=== PATIENT | female | born 1935 | race Caucasian/White ===

== ENCOUNTER 2023-08-25 18:34 | Emergency (ER) | payer MEDICARE, SELFPAY ==
[2023-08-25 18:40] VITALS: BP 147/89; PULSE 96; RESP 20; TEMP 36.6; O2SAT 97; BMI 25.4
--- NOTE | 2023-08-25 18:40 | ED_ITS ---
History of Present Illness General Chief Complaint: Epistaxis Stated Complaint: Epistaxis Time Seen by Provider: 08/25/23 23:24 Source: patient and family Mode of arrival: ambulatory Limitations: no limitations History of Present Illness HPI Narrative: 87 yo female only on baby aspirin and hx of HTN no thinner sneezed tonight bleeding out of R nares that resolved in waiting room using our tongs. Has no dizziness, no pain. Eager to go home. Family member is PA. Location: Yes right nares Onset/current episode: Yes hour(s) (4pm) Duration: Yes now resolved Pertinent past history: Yes hypertension Treatment prior to arrival: Yes nose pinching Related Data Allergies Allergy/AdvReac Type Severity Reaction Status Date / Time No Known Allergies Allergy Verified 08/25/23 18:44 Review of Systems Review of Systems: Constitutional : No Fever, No Chills ENT/Mouth : No Ear Pain, No Nasal Congestion, positive nose bleed Eyes: No Eye Pain, No Swelling, No Redness Cardiovascular : No Chest Pain, No SOB Respiratory : No Cough, No Sputum Gastrointestinal : No Nausea, No Vomiting, No Diarrhea Genitourinary : No Dysuria, No Hematuria Musculoskeletal : No joint pain, No Myalgias Skin : No Skin Lesions, No rash Neuro : No Weakness, No Numbness, No headache Psych : No Anxiety/Panic, No Depression Heme/Lymph: no bruising,No Lymphadenopathy Endocrine : No Polyuria, No Polydipsia PMFSH Past Medical History Medical History HTN (hypertension) Social History Social History (Updated 08/25/23 @ 23:33 by Yoly Cuellar DO) Patient Tobacco Use Status: Never used Tobacco Physical Exam Vital Signs: Vital Signs: Last Vital Signs Temp 97.6 F 08/25/23 22:26 Pulse 74 08/25/23 22:26 Resp 14 08/25/23 22:26 BP 145/75 H 08/25/23 22:26 Pulse Ox 96 08/25/23 22:26 O2 Del Method Room Air 08/25/23 22:26 BMI result Body Mass Index 25.4 Appearance: Alert. Oriented X3. No acute distress. Eyes: Pupils equal, round and reactive to light. ENT: Pharynx normal. no blood noted. no bleeding in either nare I cannot see source family notes no bleeding since they kept tongs on Neck: Normal inspection. Neck supple. CVS: Normal heart rate and rhythm. Pulses normal. Respiratory: No respiratory distress. . Abdomen: Soft and nontender. Skin: Skin warm and dry. Normal skin color. Extremities: No lower extremity edema. Neuro: Oriented X 3. No motor deficit. No sensory deficit. Course Course Course Narrative: This is a Rapid Medical Examination (RME) performed by Perla Alexis PA-C in triage. Full HPI, ROS, assessment and treatment plan per primary provider in the Main ED. 87-year-old female presents the ER for evaluation with nosebleed Plan: Medical Decision Making Medical Decision Making MDM Narrative: 87 yo female not on thinners here with c/o R nares bloody nose that has resolved with direct pressure will apply afrin but I see no source to cauterize at this time no dizziness or signs of anemia clinically they want to be discharged will DC home with precautions. Differential Diagnosis Differential Diagnoses: The differential diagnosis associated with the presentation includes blood nose has no other bruising so no concern for thrombocytopenia Admission/Observation Consideration of admission/observation: Escalation of care including admission/observation considered resolved bloody nose stable for DC Independent Historian Clinical information obtained from an independent historian. History obtained from or confirmed by: Other (family) Prescription Management I considered prescription management with: Other Discharge Plan Discharge Clinical Impression: Epistaxis Patient Disposition: Home, Self-Care Instructions: Nosebleed (ED) Additional Instructions: return for any worsening bleeding or signs of easy bruising. if you bleed again use the blue tongs and hold pressure. can use afrin for 3 days but no more. unable to visualize the bleed to cauterize. Print Language: Jordanian
--- NOTE | 2023-08-25 22:02 | PC.NURSE ---
Patient has had nose clip on since 1829, removed nose clip, no bleeding noted, gave patient call linares to ring if nose began bleeding again.
[2023-08-25 22:26] VITALS: BP 145/75; PULSE 74; RESP 14; TEMP 36.4; O2SAT 96
[2023-08-25] MEDS: Oxymetazoline HCl 0.05 % Nasal 15 ML SPRAY 2 SPRAY NOSTRIL-B (23:40)
[2023-08-25 23:45] VITALS: BP 145/75; PULSE 74; RESP 14; TEMP 36.4; O2SAT 96
== END 2023-08-25 23:45 | disposition home or self-care (01) ==
PROVIDERS: Emergency Provider Emergency Medicine
DX: R04.0 Epistaxis (principal)
CPT/HCPCS: 99283; 99284

== ENCOUNTER 2024-01-27 10:07 | Outpatient (AMB) | payer MEDICARE, SELFPAY ==
--- NOTE | 2024-01-27 10:13 | AM.OFFWIN_ITS ---
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 Intake Note: Patient here for bloody nose that woke her up this morning. Patient Tobacco Use Status: Never used Tobacco Allergies No Known Allergies Allergy (Verified 01/27/24 10:14) Do you need a note to return to daycare/school/sports/work: No HPI HPI Comments History of Present Illness Details 88 y/o female patient who presents to [facility] with c/o nose bleeds since this morning. Reports had one episode of bleeding back in August 2023 and was evaluated at [facility] and was given Padded ResOne Nasal clip which helped to stop the bleeding. She is currently using it, bleeding as subsided. Denies dizziness or headaches. She was also given Afrin which helped to control the bleeding. [facility] Medical History HTN (hypertension) Social History (Updated 08/25/23 @ 23:33 by Yoly Cuellar DO) Patient Tobacco Use Status: Never used Tobacco Review of Systems Const All systems reviewed & are unremarkable except as noted in HPI and below Physical Exam Vital Signs: Last Vital Signs Pulse 60 01/27/24 10:14 BP 130/66 01/27/24 10:14 Pulse Ox 95 01/27/24 10:14 Oxygen Delivery Method Room Air 01/27/24 10:14 BMI result Body Mass Index 28.7 Const General: cooperative and no acute distress Nutritional Appearance: overweight Orientation/consciousness: patient oriented x3 HEENT Head: Yes normocephalic Ears: external ears normal General nose exam: Abnormal mucous membranes and turbinates present erythematous and other (Right nostril currently bleeding.) and Other nasal findings present (Nasal clip ResOne present) Face and sinus: Yes sinuses nontender Mouth: moist mucous membranes Throat: Yes uvula midline Neuro General: patient oriented x3, gait normal and moves all extremities Assessment & Plan Assessment & Plan (1) Epistaxis, recurrent: Code(s): R04.0 - Epistaxis Plan: Advised to f/u with PCP for ENT referral Continue to apply Nasal clip on/off until bleeding stops. Ordered Afrin for 3 days only. Apply Ice and tilt head for 20 minutes. Medications: New oxymetazoline 0.05% (Afrin (oxymetazoline)) 2 sprays intranasal Q12H 3 days PRN 15 mL 1RF nasal congestion R04.0 - Epistaxis Coding Level of Care Code Est Pt Level 3 (06824) Diagnoses Epistaxis, recurrent R04.0 Time Spent (min) 15
[2024-01-27 10:14] VITALS: BP 130/66; PULSE 60; O2SAT 95; BMI 28.7
== END 2024-01-27 10:39 | disposition home or self-care (01) ==
PROVIDERS: Visit Provider Nurse Practitioner Family
DX: R04.0 Epistaxis (principal)

== ENCOUNTER → 2024-01-27 10:07 | Outpatient (BNVA) | payer MEDICARE, SELFPAY | PROVIDERS: Visit Provider Nurse Practitioner Family | DX: R04.0 Epistaxis (principal) | CPT/HCPCS: 99212 ==

== ENCOUNTER 2024-05-25 06:57 | Emergency (ER) | payer MEDICARE, SELFPAY ==
--- NOTE | ~2024-05-25 | XR_ITS ---
EXAMINATION: XR CHEST 1 VIEW HISTORY: dizzy COMPARISON: There are no prior studies for comparison. FINDINGS: A single AP portable view of the chest performed at 12:43 PM is submitted. The lungs are expanded and clear. There is no pleural effusion, pneumothorax, or pulmonary vascular congestion. The heart is enlarged. There is degenerative disc disease of the spine. XR/XR chest 1V IMPRESSION: Cardiomegaly. The lungs are clear. Electronically signed by: Mason Hathaway MD 05/25/2024 01:09 PM [facility]
--- NOTE | ~2024-05-25 | CT_ITS ---
EXAMINATION: CT ANGIOGRAM NECK CLINICAL INFORMATION: Dizziness. COMPARISON: None available. TECHNIQUE: CT brain: Contiguous axial images through the brain from the skull base to vertex using 5 mm collimation without the IV contrast administration. Soft tissue and bone algorithm. Sagittal and coronal reformatted images acquired. CT angiogram of head and neck: Contiguous axial images from the aortic arch to the skull vertex using 0.6 mm collimation following the IV contrast. Total of 70 cc Omnipaque 350 strength without immediate complications. Sagittal and coronal reformatted images acquired. In maximum intensity projections in the coronal and sagittal plane. Soft tissue algorithm. The degree of stenosis determined by NASCET criteria. This CT examination was performed using dose optimization techniques as appropriate, variously including the following: *Automated exposure control *Adjustment of mA and/or kV according to patient size (this includes techniques or standardized protocols for targeted exams where dose is matched to indication/reason for exam; i.e. extremities or head) *Use of iterative reconstruction technique Total DLP: 2331 mGy centimeter. FINDINGS: CT brain: No acute intracranial hemorrhage, mass effect, midline shift, hydrocephalus or herniation. Garcia-white matter differentiation is normal. Bilateral multifocal patchy deep periventricular white matter hypodensities involving centrum semiovale and rodrigues radiata. Prominence of the extra-axial CSF spaces along the intraconal convexities measuring less than 5 mm suggesting volume loss. Images acquired following the IV contrast administration demonstrated no abnormal enhancement within the intra-axial or the extra-axial compartment. Calcified plaques in the cavernous and supraclinoid segments both ICAs. Old lacunar infarct versus Virchow-Jeremy space inferior to right basal ganglia. The bony calvarium is intact. Tympanic cavities and mastoid cells are aerated. Poor pneumatization of the frontal sinuses. No air-fluid levels in the paranasal sinuses. High riding right internal jugular bulb. Degenerative changes in the left temporal mandibular joint. CT angiogram neck: Calcified plaques in the thoracic aortic arch and the origin of its main branches. Normal diameter of the aorta without intimal flap or focal stenosis. Right CCA: Tortuosity. Normal patency. Calcified plaques. No focal stenosis. No intimal flap. Right ICA: Calcified plaques. No focal stenosis. No intimal flap. Normal patency. Tortuosity. Left CCA: Normal patency. Calcified plaques. No focal stenosis. No intimal flap. Tortuosity. Left ICA: Normal patency. No focal stenosis. No intimal flap. Tortuosity. V1/V2 segments of the vertebral arteries are both patent with the tortuosity and orientating from the subclavian arteries without focal stenosis or intimal flap. Codominant vertebral arteries. CT angiogram brain: Anterior cerebral circulation: ICAs: Calcified plaques in the cavernous and supraclinoid segments. Normal patency. No focal stenosis. No abrupt cut off. MCA's: Normal patency. No focal stenosis. No abrupt cut off. Bifurcation trifurcation demonstrated normal vascular irregularity. ICAs: Normal patency. No focal stenosis. No abrupt cut off. Anterior communicating artery is patent. Ophthalmic arteries are patent. Posterior communicating arteries are patent. The left is larger than the right. Posterior cerebral circulation: V3/V4 segments are patent without focal stenosis or intimal flap. Posterior inferior cerebellar arteries are patent. Basilar artery is patent without focal stenosis or intimal flap. Anterior inferior cerebellar arteries are patent. Superior cerebellar arteries are patent. personal lines agent: Normal patency. No focal stenosis or abrupt cut off. Ancillary findings: Pneumatoceles/bullae, left upper lobe. Heterogeneous nodular not enlarged thyroid gland. 1.3 cm dominant nodule, right thyroid lobe. CT/CT angio head neck IMPRESSION: No high degree stenosis or dissection. No main cerebral artery occlusion or embolus or gross aneurysm. Atherosclerosis disease. Heterogeneous nodular thyroid gland with a dominant nodule in the right thyroid lobe. Electronically signed by: Grabiel Hendrix MD 05/25/2024 11:38 AM [facility]
[2024-05-25 07:04] VITALS: BP 150/90; PULSE 65; O2SAT 97
[2024-05-25 07:26] VITALS: BP 148/60; PULSE 55; RESP 20; TEMP 36.8; O2SAT 96; BMI 27.3
--- NOTE | 2024-05-25 07:30 | ECG_ITS ---
Test Reason : WEAKNESS/DIZZINESS Blood Pressure : */* mmHG Vent. Rate : 50 BPM Atrial Rate : 50 BPM P-R Int : 280 ms QRS Dur : 78 ms QT Int : 482 ms P-R-T Axes : -21 -33 43 degrees QTcB Int : 439 ms Sinus bradycardia with 1st degree A-V block Left axis deviation Left ventricular hypertrophy with repolarization abnormality ( R in aVL , Rodo product ) Abnormal ECG No previous ECGs available Referred By: Generic ED Physician Electronically Signed By: SATISH HOLMAN MD
--- OUTSIDE RECORDS SUMMARY | 2024-05-25 07:45 | XMS_ITS | Encounter Summary ---
Author Organization [facility] [place], Address [address] [place] [address] Phone Care Team Providers Care Label Folder Name Role Phone Sammy Land DRILL PRESSER Primary Care Provider [phone] Encounter Details Date Type Department Care Team (Late st Contact Info) Description 04/20/2024 Documentation Only [facility] [address] [place] [address] Abhijeet Ivory DO [address] [facility] [place] [address] Social History Tobacco Use Types Packs/Day Years Used Date Smoking Tobacco: Never Alcohol Use Standard Drinks/Week Comments No 0 (1 standard drink = 0.6 oz pur e alcohol) Comments Unknown Sex and Gender Information Value Date Recorded Sex Assigned at Not on file Legal Sex Female 4:33 PM EST Gender Identity Not on file Sexual Orientation Not on file documented as of this encounter Plan of Treatment Upcoming Encounters Date Type Department Care Team (Late st Contact Info) Description 04/27/2025 1:30 PM EST Office Visit [facility] [address] [place] [address] Abhijeet Ivory DO [address] [facility] [place] [address] documented as of this encounter Visit Diagnoses Not on filedocumented in this encounter Care Teams Label Folder Relationship Specialty Start Date End Date Sammy Land, DRILL PRESSER [address] [place] [address] PCP - General Nurse Practitioner 04/16/23 documented as of this encounter
--- OUTSIDE RECORDS SUMMARY | 2024-05-25 07:45 | XMS_ITS | Clinical Summary ---
Author Organization [address] [facility] Address [address] [place] [address] Phone Care Team Providers Care Laborer Filter Plant Name Role Phone Naya Winchester MD Primary Care Provider [phone] Allergies No known active allergies Medications losartan (COZAAR) 50 mg tablet Take 1 tablet (50 mg total) by mouth 1 (one) time each day. Active rosuvastatin (CRESTOR) 5 mg tablet Take 1 tablet (5 mg total) by mouth 1 (one) time each day. 02/04/2020 Active magnesium chloride (Slow-Mag) 71.5 mg tablet,delayed release (DR/EC) Take 1 Tab by mouth every other day. Active metoprolol succinate (TOPROL-XL) 25 mg 24 hr tablet Take 1 tablet (25 mg total) by mouth 2 (two) times a day. 180 tablet 1 03/31/2024 Active Active Problems Problem Noted Date Diagnosed Date HLD (hyperlipidemia) 01/25/2021 Assessment & Plan (03/31/2024 11:57 AM EST): HTN (hypertension) 01/25/2021 Hypertrophic cardiomyopathy 01/25/2021 Assessment & Plan (03/31/2024 11:22 AM EST): Encounters Date Type Department Care Team Description 03/31/2024 10:50 AM EST Office Visit [facility] [address] [facility] [address] [place] [phone] Guille Tan MD Hypertrophic cardiomyopathy (CMS/HCC) (Primary Dx); Benign essential HTN; Mixed hyperlipidemia 02/23/2024 10:00 AM EST Ancillary Procedure [facility] [address] [facility] [address] [place] [phone] Secondary hypertension; Other hypertrophic cardiomyopathy (CMS/HCC) from Last 3 Months Family History Medical History Relation Name Comments Heart attack Brother Relation Name Status Comments Brother Social History Tobacco Use Types Packs/Day Years Used Date Smoking Tobacco: Never Smokeless Tobacco: Never Alcohol Use Standard Drinks/Week Comments No 0 (1 standard drink = 0.6 oz pur e alcohol) Comments Unknown Sex and Gender Information Value Date Recorded Sex Assigned at Not on file Legal Sex Female 2:54 PM EST Gender Identity Not on file Sexual Orientation Not on file Obstetrics History Last Filed Vital Signs Vital Sign Reading Time Taken Comments Blood Pressure 154/74 03/31/2024 11:00 AM EST Pulse 60 03/31/2024 11:00 AM EST Temperature - - Respiratory Rate - - Oxygen Saturation 95% 03/31/2024 11:00 AM EST Inhaled Oxygen Concentration - - Weight 67.1 kg (148 lb) 03/31/2024 11:00 AM EST Height 152.4 cm (5') 03/31/2024 11:00 AM EST Body Mass Index 28.9 03/31/2024 11:00 AM EST Plan of Treatment Upcoming Encounters Date Type Department Care Team (Late st Contact Info) Description 09/22/2024 9:40 AM EDT Office Visit [facility] [address] [facility] [address] [place] [phone] Wendy Villarreal NP [address] [facility] [address] [place] [address] Health Maintenance Due Date Last Done Comments Zoster Vaccines (1 of 2) 1986 RSV Immunization Patients 60+ Years Old (1 - 1-dose 75+ series) 09/11/2011 Pneumococcal Vaccine: 50+ Years (2 of 2 - PPSV23 or PCV20) 05/15/2017 05/15/2016, 12/29/2014 Cholesterol Screening (Lipid Panel) 03/23/2022 Depression Screening 03/23/2022 Falls Risk Assessment 03/23/2022 Osteoporosis Screening (Bone Density Screening) 03/23/2022 Social Influencers of Health Screening 03/23/2022 Hypertension/CHF/CAD Annual BMP Blood Test 03/29/2022 Medicare Annual Wellness Visit 09/04/2023 09/03/2022 DTaP,Tdap,and Td Vaccines (2 - Td or Tdap) 10/04/2033 10/05/2023 COVID-19 Vaccine Completed 01/01/2024, , 01/16/2022, Additional history exists Influenza Vaccine Completed 01/20/2024, , 02/01/2022, Additional history exists HIB Vaccines Aged Out No longer eligi ble based on patient's age to complete this topic HPV Vaccines Aged Out No longer eligi ble based on patient's age to complete this topic Hepatitis A Vaccines Aged Out No long er eligible based on patient's age to complete this topic Hepatitis B Vaccines Aged Out No long er eligible based on patient's age to complete this topic IPV Vaccines Aged Out No longer eligi ble based on patient's age to complete this topic MMR Vaccines Aged Out No longer eligi ble based on patient's age to complete this topic Meningococcal ACWY Vaccine Aged Out N o longer eligible based on patient's age to complete this topic RSV Immunization Patients Under 20 months Aged Out No longer eligible based on patient's age to complete this topic Varicella Vaccines Aged Out No longer eligible based on patient's age to complete this topic Procedures Procedure Name Priority Date/Time Associated Diagnosis Comments TRANSTHORACIC ECHOCARDIOGRAM (TTE) COMPLETE Routine 02/23/2024 10:54 AM EST Secondary hypertension Other hypertrophic cardiomyopathy (CMS/HCC) from Last 3 Months Results * (ABNORMAL) TRANSTHORACIC ECHOCARDIOGRAM (TTE) COMPLETE (02/23/2024 10:54 AM EST) Left Atrium Minor [place] 6.7 cm CV PACS Left Atrium Major [place] 7.2 cm CV PACS LA Area Sys (A2C) 26 cm2 CV PACS LA Area Sys (A4C) 29 cm2 CV PACS LA Volume (BP) 88 mL CV PACS RA Area 10.5 cm2 CV PACS RA 2D Volume 17 mL CV PACS AV Mean Gradient 30 mmHg CV PACS Ao VTI 95.3 cm CV PACS AV Peak J Luis 3.7 m/s CV PACS AV Peak Gradient 56 mmHg CV PACS AV Area Continuity Equation 1.8 cm2 CV PACS AV Area Peak Velocity 2.0 cm2 CV PACS Aortic Sinus Valsalva 3.6 cm CV PACS Ascending Aorta 3.9 cm CV PACS IVC Proximal 1.7 cm CV PACS IVC Proximal 0.6 cm CV PACS IVSD 1.5(A) 0.6 - 0.9 cm CV PACS LVIDD 4.6 3.8 - 5.2 cm CV PACS LVIDS 3.8(A) 2.2 - 3.5 cm CV PACS LVOT Diameter 2.2 cm CV PACS LVOT Mean J Luis 1.3 m/s CV PACS LVOT Mean Grad 8 mmHg CV PACS LVOT Peak VTI 45.8 cm CV PACS LVOT Peak J Luis 2.0 m/s CV PACS LVOT Peak Gradient 15 mmHg CV PACS LVPWD 1.1(A) 0.6 - 0.9 cm CV PACS MV E' Tissue Velocity Lateral 9 cm/s CV PACS MV E' Tissue Velocity Septal 4 cm/s CV PACS LVOT Area 3.8 cm2 CV PACS LVOT Stroke Volume 174 mL CV PACS MR PISA Nyquist J Luis 40 cm/s CV PACS PISA MR Radius 1.20 cm CV PACS MR VTI 222.0 cm CV PACS MR PISA Max Velocity 8.0 m/s CV PACS MR Peak Gradient 257 mmHg CV PACS E Wave Deceleration Time 254(A) 119 - 242 ms CV PACS MV Peak A J Luis 0.71 m/s CV PACS MV Peak E J Luis 0.88 m/s CV PACS PISA MR EROA 0.45 cm2 CV PACS PISA Regurgitant Volume 100 mL CV PACS MO End Max Velocity 1.0 m/s CV PACS PA End Diastolic Pressure 4 mmHg CV PACS PV Acceleration Time 144 ms CV PACS RV Diastolic Basal Dimension 2.6 2.5 - 4.1 cm CV PACS RV S' 11 cm/s CV PACS TAPSE 29 mm CV PACS TR Peak Velocity 2.74 m/s CV PACS TR Peak Gradient 30 mmHg CV PACS E/E' Ratio Septal 22 CV PACS E/E' Ratio Averaged 16 CV PACS Relative Wall Thickness ratio 0.48 CV PACS LVOT:AV VTI Index 0.48 CV PACS FS 17 % CV PACS LV Mass 2D 230 g CV PACS LVOT flow 494 mL/s CV PACS AV Velocity Ratio 0.54 CV PACS E/A Ratio 1.2 CV PACS E/E' Ratio Lateral 10 CV PACS BSA 1.69 m2 CV PACS LA Volume Index (BP) 54 mL/m2 CV PACS LVIDD Index 2.80 cm/m2 CV PACS LVIDS Index 2.32 cm/m2 CV PACS LV Mass Index 2D 140(A) 44 - 88 g/m2 CV PACS LVOT Stroke Index 106 mL/m2 CV PACS RA 2D Volume Index 10(A) 15 - 27 mL/m2 CV PACS LELE Index (VTI) 1.11 cm2/m2 CV PACS LELE Index (Pk J Luis) 1.22 cm2/m2 CV PACS Ascending Aorta Index 2.38 cm/m2 CV PACS Anatomical Region Laterality Modality Ultrasound Narrative 02/25/2024 12:29 PM EST ?Left ventricle cavity size is normal. Left ventricular systolic function is hyperdynamic with an ejection fraction over 70%. ?No regional LV wall motion abnormalities noted. ?Left ventricle moderate asymmetric septal hypertrophy. There is a resting LVOT gradient of 24 mmHg due to HUNTER. ?There is Grade II (moderate) diastolic dysfunction. ?Right ventricle cavity is normal. Right ventricular systolic function is normal. ?Mitral valve demonstrates moderate regurgitation with an eccentrically directed jet. There is systolic anterior motion (HUNTER) of the mitral leaflets. ?There is systolic anterior motion of the mitral valve anterior leaflet. ?The ascending aorta is mildly dilated (3.9 cm). Left Ventricle Left ventricle cavity size is normal. There is moderate asymmetric septal hypertrophy. There is an LVOT gradient of 24 mmHg at rest. Systolic function is hyperdynamic with an ejection fraction over 70%. There are no regional LV wall motion abnormalities. There is Grade II (moderate) diastolic dysfunction. Right Ventricle Right ventricle cavity appears normal. Systolic function is normal. Left Atrium Left atrium cavity is severely dilated. Right Atrium Right atrium cavity is normal. IVC/SVC Inferior vena cava structure is normal. Mitral Valve The leaflets are mildly thickened. There is mild annular calcification. There is moderate regurgitation with an eccentrically directed jet. There is no evidence of mitral valve stenosis. There is systolic anterior motion of the anterior leaflet. Tricuspid Valve Tricuspid valve structure is normal. There is no significant regurgitation. There is no significant tricuspid valve stenosis. Aortic Valve The aortic valve is trileaflet. The leaflets are mildly thickened and exhibit normal excursion. There is trace regurgitation with a centrally directed jet. There is no evidence of aortic valve stenosis. Pulmonic Valve The pulmonic valve was not well visualized. There is mild pulmonic valve regurgitation. No significant pulmonary valve stenosis noted. Ascending Aorta The ascending aorta is mildly dilated (3.9 cm). Pericardium Pericardium appears normal. There is no pericardial effusion. Study Details Overall the study quality was adequate. Guille Tan MD CV ECHO PROCEDURES Final Result from Last 3 Months Insurance MEDICARE [facility] Care Teams Laborer Filter Plant Relationship Specialty Start Date End Date Naya Winchester MD [address] [place] [address] PCP - General Internal Medicine 03/31/24
--- OUTSIDE RECORDS SUMMARY | 2024-05-25 07:45 | XMS_ITS | Encounter Summary ---
Author Organization [facility] [place], Address [address] [place] [address] Phone Care Team Providers Care Urban Designer Name Role Phone Sammy Land ORIENTATION AND MOBILITY INSTRUCTOR Primary Care Provider [phone] Encounter Details Date Type Department Care Team (Late st Contact Info) Description 11/23/2022 Documentation Only [facility] [address] [place] [address] Abhiejet Ivory DO [address] [facility] [place] [place] [address] Social History Tobacco Use Types [...] Visit [facility] [address] [place] [address] Abhijeet Ivory DO [address] [facility] [place] [place] [address] documented as of this encounter Visit Diagnoses Not on filedocumented in this encounter Care Teams Urban Designer Relationship Specialty Start Date End Date Sammy Land, ORIENTATION AND MOBILITY INSTRUCTOR [address] [place] [address] PCP - General Nurse Practitioner 04/16/23 documented as of this encounter
--- OUTSIDE RECORDS SUMMARY | 2024-05-25 07:45 | XMS_ITS | Encounter Summary ---
Author Organization [facility] [place], Address [address] [place] [address] Phone Care Team Providers Care Box Person Name Role Phone Sammy Land COMMANDER POLICE RESERVES Primary Care Provider [phone] Encounter Details Date Type Department Care Team (Late st Contact Info) Description 11/23/2022 Documentation Only [facility] [address] [place] [address] Abhijeet Ivory DO [address] [facility] [place] [address] Social History Tobacco Use Types [...] Visit [facility] [address] [place] [address] Abhijeet Ivory DO [address] [facility] [place] [address] documented as of this encounter Visit Diagnoses Not on filedocumented in this encounter Care Teams Box Person Relationship Specialty Start Date End Date Sammy Land, COMMANDER POLICE RESERVES [address] [place] [address] PCP - General Nurse Practitioner 04/16/23 documented as of this encounter
--- OUTSIDE RECORDS SUMMARY | 2024-05-25 07:45 | XMS_ITS | Data Portability ---
Author Organization [place] - [facility], Allergy Address [address] [place] [phone] Care Team Providers Care Weld Inspector Name Role Phone SRINIVASAN MENG Referring Provider Assessment Encounter Date Assessment Date Assessment LastModified by Organization Details LastModified Time 02/09/2024 02/09/2024 Recommendations: Follow up with referring provider. Amplification, pending medical clearance. [email or web address] Not available 02/09/2024 11:50:59 02/09/2024 02/09/2024 Patient with psoriatic arthritis on aspirin for cardiac prevention. She has had 2 bouts of epistaxis over the last year. 1 episode in August which resolved with pressure and a brief episode 2 weeks ago which resolved with Afrin and pressure. In between she has done well. No discrete bleeding source noted. Mild septal deviation to right side noted. Suggest saline nasal gel and humidifier. She has difficulty doing saline spray due to her arthritis. Audiometric testing reviewed. Suggest she consider amplification [email or web address] Not available 02/09/2024 12:25:00 Plan of Treatment Reminders Order Date Submit Date Provider Last Modified By Organization Details Last Modified Time Details Appointments None record ed. Lab None record ed. Referral None record ed. Procedures None record ed. Surgeries None record ed. Imaging None record ed. Medication Orders None record ed. Patient TargetsNo targets recorded. Patient Instructions Encounter Date Encounter Id Patient Instructions Last Modified By Organization Details Last Modified Time 02/09/2024 [id number] nosebleed information [email or web address] Not available 02/09/2024 12:25:00 Reason for Referral None Reported. Results Created Date Observation Date Name Description Value Unit Range Abnormal Flag Note LastModifiedBy Organization Detail LastModifiedTime 02/09/20 24 audio gram No observ ation record ed. [email or web address] Not Available 01/13 15:27:30 Result Notes None recorded. Problems Name Problem SNOMED Code Status Onset Date Resolution Date Notes Provider Name and Address Organization Details Recorded Time Bleeding from nose 469886897 Active 2023 ZOILA SCALES MD [address] [facility],[address], [place], [address], [place] - [facility] 4 11:38:18 Abnormal auditory perception 80255098 Active 2023 ZOILA SCALES MD [address] [facility], [place], [address], [place] - [facility] 11:38:27 Sensorineural hearing loss of bilateral ears 197495799 Active 2023 Davonte YIN [address] [facility],[place] [address], [place], [address], [facility] 11:51:02 Problem Notes None recorded. Procedures Surgical History Date Name Laterality Status Provider Name and Address Organization Details Recorded Time 02/09/20 24 Comp Audio with Tymps (66961 & 84053) completed Davonte YIN [address] [facility],[address], [address], [facility] - [facility] 02/09/2024 11:50:45 Cholecystectomy w/cholang completed ZOILA Cruz MD [address] [place] [address],[address], [address], [facility] 02/08/2024 10:27:22 partial resection of colon completed ZOILA Cruz MD [address] [facility],[address], [address], [facility] 02/08/2024 10:27:32 Imaging Results Imaging Date Name Status LastModified by Organiz ation Details LastModified Time 02/09/2024 audiogram completed [email or web address] Information n ot available 02/09/2024 15:27:30 Procedure Notes None recorded. Medical Equipment None Reported. Allergies No known drug allergies Medications Name Sig Start Date Stop Date Status Note LastModified by Organization Details LastModified Time losartan 50 mg tablet active Not Available Not Available No t Available nystatin 100,000 unit/gram topical cream APPLY TOPICALLY TO THE AFFECTED AREA TWICE DAILY 02/08 completed Not Available Not Available Not Available metoprolol succinate ER 25 mg tablet,exte nded release 24 hr TAKE 1 TABLET DAILY active Not Available Not Available No t Available rosuvastati n 5 mg tablet Take 1 tablet every day by oral route. active Not Available Not Available No t Available Vitals Date Recorded Body height Body mass index (BMI) Body weight Provider Name and Address Organization Details Last Updated DateTime 02/09/2024 153.67 cm 27.9 kg/m2 68848.89 g Leesa Carcamo [place] - [facility] 02/09/2024 11:26:33 Social History None recorded. Functional Status None recorded. Mental Status None recorded. Family History Nothing Reported. Medical History Condition Response Heart Problems Y Hyperlipidemia Y High Cholesterol Y Hypertension Y Kidney Disease Y Gynecological HistoryNo gynecological history recorded. Obstetrics History GPAL:G 0 P 0 0 0 0 Past Encounters Encounter ID Performer Location Encounter Start Date Encounter Closed Date Diagnosis/Indication Diagnosis SNOMED-CT Code Diagnosis ICD10 Code Diagnosis Note [id number] ZOILA LEVI MD [facility] [address] [address] 02/09/2024 11:16:40 02/09/2024 12:18:22 Bleeding from nose 162450365 R04.0 Long-term current use of antiplatelet drug 5655277142 07682 Z79.02 Sensorineu ral hearing loss of bilateral ears 357770764 H90.3 Audiologic al evaluation results: Right ear: {{Normal N ormal through 2 kHz Mild M oderate Mo derately-s evere Mana re* Profou nd}} {{hearing sloping to a mild slopi ng to a moderate s loping to moderately severe slo ping to severe slo ping to profound f lat high frequency* low frequency mid frequency cookie bite linares curve}} {{with sen sorineural hearing loss with* cond uctive hearing loss with mixed hearing loss with}} {{excellen t good* fa ir poor no measurable }} word recognitio n. Left ear: {{Normal N ormal through 2 kHz Mild M oderate Mo derately-s evere Mana re* Profou nd}} {{hearing sloping to a mild slopi ng to a moderate s loping to moderately severe slo ping to severe slo ping to profound f lat high frequency* low frequency mid frequency cookie bite linares curve}} {{with sen sorineural hearing loss with* cond uctive hearing loss with mixed hearing loss with}} {{excellen t good* fa ir poor no measurable }} word recognitio n. Tympanomet ry: Right Ear:{{Type A Type As Type Ad* Type C Type C, shallow & rounded Ty pe B Type B with large volume Cou ld not maintain a hermetic seal}} Left Ear:{{Type A* Type As Type Ad Type C Type C, shallow & rounded Ty pe B Type B with large volume Cou ld not maintain a hermetic seal}} [id number] Davonte YIN [facility] [address] [address] 02/09/2024 11:49:39 02/09/2024 13:04:10 Sensorineural hearing loss of bilateral ears 016768024 H90.3 Audiologic al evaluation results: Right ear: {{Normal N ormal through 2 kHz Mild M oderate Mo derately-s evere Mana re* Profou nd}} {{hearing sloping to a mild slopi ng to a moderate s loping to moderately severe slo ping to severe slo ping to profound f lat high frequency* low frequency mid frequency cookie bite linares curve}} {{with sen sorineural hearing loss with* cond uctive hearing loss with mixed hearing loss with}} {{excellen t good* fa ir poor no measurable }} word recognitio n. Left ear: {{Normal N ormal through 2 kHz Mild M oderate Mo derately-s evere Mana re* Profou nd}} {{hearing sloping to a mild slopi ng to a moderate s loping to moderately severe slo ping to severe slo ping to profound f lat high frequency* low frequency mid frequency cookie bite linares curve}} {{with sen sorineural hearing loss with* cond uctive hearing loss with mixed hearing loss with}} {{excellen t good* fa ir poor no measurable }} word recognitio n. Tympanomet ry: Right Ear:{{Type A Type As Type Ad* Type C Type C, shallow & rounded Ty pe B Type B with large volume Cou ld not maintain a hermetic seal}} Left Ear:{{Type A* Type As Type Ad Type C Type C, shallow & rounded Ty pe B Type B with large volume Cou ld not maintain a hermetic seal}} Health Concerns Section Related Observation LastModified by Organization Detai ls LastModified Time None Recorded Concern Status LastModified by Organization Details LastModified Time None Recorded Advance Directives Directive None Recorded Payers Encounter Date Sequence Insurance Name Policy Number Policy Copeland Covered Member ID Copeland Member ID Guarantor Name 02/09/2024 1 [place] [employer] Viola E Daubney [id number] Viola E Daubney 02/09/2024 2 [place] [id number] Viola E Daubney [id number] Viola E Daubney 02/09/2024 1 [place] [employer] Viola E Daubney [id number] Viola E Daubney 02/09/2024 2 [place] [id number] Viola E Daubney [id number] Viola E Daubney Notes Date Note Type Note Provider Name and Address Organization Details Recorded Time 02/09/2024 text/html Audiological Evaluation HPIReported bypatient.Hearing loss perceived:hearing loss in both ears: no differences noted between ears Onset:gradual Use of amplification or other hearing devices:none (does not use amplification) NEO CHATMAN, [address],[place] [address], [place], [address], [facility] - [facility] 02/09/2024 11:57:15 OBGyn Episode No OBEpisode recorded.
--- OUTSIDE RECORDS SUMMARY | 2024-05-25 07:45 | XMS_ITS | Encounter Summary ---
Author Organization [facility], Address [address] [place] [address] Phone Care Team Providers Care Ostrich Farm Worker Name Role Phone Sammy Land MAINTENANCE CUSTODIAN Primary Care Provider [phone] Encounter Details Date Type Department Care Team (Late st Contact Info) Description 12/13/2022 Documentation Only [facility] [address] [place] [address] Abhijeet Ivory DO [address] [facility] [place] [address] Social History Tobacco Use [...] Visit [facility] [address] [place] [address] Abhijeet Ivory DO [address] [facility] [place] [address] documented as of this encounter Visit Diagnoses Not on filedocumented in this encounter Care Teams Ostrich Farm Worker Relationship Specialty Start Date End Date Sammy Land, MAINTENANCE CUSTODIAN [address] [place] [address] PCP - General Nurse Practitioner 04/16/23 documented as of this encounter
--- OUTSIDE RECORDS SUMMARY | 2024-05-25 07:45 | XMS_ITS | Clinical Summary ---
Author Organization [facility] Address [address] [place] [address] Phone Care Team Providers Care Lacquer Polisher Name Role Phone Shanda Sammy K NP Primary Care Provider [phone] Allergies No known active allergies Medications rosuvastatin (CRESTOR) 5 MG tablet Take 5 mg by mouth 1 (one) time each day Active losartan (COZAAR) 50 MG tablet 1 tablet (50 mg total) 1 (one) time each day 12/26/2021 Active metoprolol succinate XL (TOPROL XL) 50 MG 24 hr tablet Take 50 mg by mouth 1 (one) time each day 12/26/2021 Active Active Problems Problem Noted Date Diagnosed Date Hypertensive heart and chron ic kidney disease without heart failure, with stage 1 through stage 4 chronic kidney disease, or unspecified chronic kidney disease 01/05/2020 Stage 3a chronic kidney disease 01/04/2020 Essential hypertension 01/04/2020 Hyperlipidemia 01/04/2020 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 Psoriatic arthritis 01/04/2020 Encounters Date Type Department Care Team Description 04/21/2024 1:30 PM EST Office Visit [facility] [address] [place] [address] Abhijeet Ivory DO Hypertensive 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 heart failure, with stage 1 through stage 4 chronic kidney disease, or unspecified chronic kidney disease (Primary Dx); Stage 3a chronic kidney disease (HCC); Essential hypertension 04/20/2024 Documentation Only [facility] [address] [place] [address] Abhijeet Ivory DO from Last 3 Months Immunizations Name Administration Dates Next Due Influenza Split High Dose Preservative Free IM 0 01/08/2016,12/29/2014 Pneumococcal Conjugate 13-Valent 05/15/2016,12/13 Family History Medical History Relation Comments Cancer Mother kidney Hypertension Mother Kidney disease Mother Kidney cancer Diabetes Sibling 1 brother - type 2 Heart disease Sibling 2 brother Relation Status Comments Mother Sibling 1 Sibling 2 Social History Tobacco Use Types Packs/Day Years Used Date Smoking Tobacco: Never Alcohol Use Standard Drinks/Week Comments No 0 (1 standard drink = 0.6 oz pur e alcohol) Comments Unknown Sex and Gender Information Value Date Recorded Sex Assigned at Not on file Legal Sex Female 4:33 PM EST Gender Identity Not on file Sexual Orientation Not on file Last Filed Vital Signs Vital Sign Reading Time Taken Comments Blood Pressure 124/68 04/21/2024 1:44 PM EST Pulse 70 04/21/2024 1:44 PM EST Temperature - - Respiratory Rate - - Oxygen Saturation - - Inhaled Oxygen Concentration - - Weight 65.8 kg (145 lb) 07/02/2018 12:00 PM EDT Height 162.6 cm (5' 4 ) 07/02/2018 12:00 PM EDT Body Mass Index 24.89 07/02/2018 12:00 PM EDT Plan of Treatment Upcoming Encounters Date Type Department Care Team (Late st Contact Info) Description 04/27/2025 1:30 PM EST Office Visit [facility] [address] [place] [address] Abhijeet Ivory DO [address] [place] [id number] Health Maintenance Due Date Last Done Comments Pneumococcal Vaccine: 65+ Years (2 of 2 - PPSV23 or PCV20) 07/10/2016 05/15/2016, 12/29/2014 Influenza Vaccine (#1) 2023 6, 12/29/2014 Hepatitis B Vaccine Aged Out No longe r eligible based on patient's age to complete this topic Insurance MEDICARE [facility] Care Teams Lacquer Polisher Relationship Specialty Start Date End Date Sammy Land NP [address] [place] [address] PCP - General Nurse Practitioner 04/16/23
--- OUTSIDE RECORDS SUMMARY | 2024-05-25 07:45 | XMS_ITS | Data Portability ---
Author Organization [facility] Address [address] [place] [address] Care Team Providers Care Affiliate Marketing Specialist Name Role Phone SRINIVASAN MENG Primary Care Provider Assessment No assessment recorded. Plan of Treatment Reminders Order Date Submit Date Provider Last Modified By Organization Details Last Modified Time Details Appointments None recorded. Lab None recorded. Referral None recorded. Procedures repair of laceration procedure (PROC) 2023 024 [email or web address] Not available 11:37:31 Surgeries None recorded. Imaging XR, finger(s), 2 or more view - laceration. r/o fracture to left pinky finger 2023 024 [facility] [address] [place], [address], 4 01:49:20 Medication Orders None recorded. Patient TargetsNo targets recorded. Patient Instructions Encounter Date Encounter Id Patient Instructions Last Modified By Organization Details Last Modified Time 10/05/2023 [id number] suture setup kit* [facility] availab 10/05/2023 13:15:01 Discharge Instructions - Wound Care - Wash the wound gently with soap and warm water once daily. Otherwise keep wound clean, dry and covered with a dressing. - Do not immerse in water, and do not use alcohol or peroxide to clean. Do not use iodine or mercurochrome. - Elevate to decrease pain and improve healing. - Minimize use of affected body part. - Return here or see your doctor for any sign of infection, including redness, swelling, pus or increased pain. - Return for wound check in 2 or 3 days. - Return to have stiches removed in {{5days 7 days 10 days* 2 weeks}}. General recommendations: Scalp- 7 days Face- 5 day over joints - 14 days Hands/feet- 12 days Other areas - 10 days - If you received a tetanus shot the site may become sore and you may develop a low-grade fever. Take Tylenol if you have fever or pain. Return for a more severe reaction. - See your doctor or return here if not improving in {{1 2 3* 4 5 6 7 8 9 10 11 12 13 1 4}} days. Discharge Instructions - Wound Care - Wash the wound gently with soap and warm water once daily. Otherwise keep wound clean, dry and covered with a dressing. - Do not immerse in water, and do not use alcohol or peroxide to clean. Do not use iodine or mercurochrome. - Elevate to decrease pain and improve healing. - Minimize use of affected body part. - Return here or see your doctor for any sign of infection, including redness, swelling, pus or increased pain. - Return for wound check in 3 or 4 days. - Return to have stiches removed in {{5days 7 days 10 days* 2 weeks}}. General recommendations: Scalp- 7 days Face- 5 day over joints - 14 days Hands/feet- 12 days Other areas - 10 days - If you received a tetanus shot the site may become sore and you may develop a low-grade fever. Take Tylenol if you have fever or pain. Return for a more severe reaction. - See your doctor or return here if not improving in {{1 2 3* 4 5 6 7 8 9 10 11 12 13 1 4}} days. [email or web address] Not available 10/05/2023 12:31:47 10/08/2023 [id number] Follow up with your PCP or [facility] for suture removal in 5-7 days. [email or web address] Not available 10/08/2023 16:24:41 Reason for Referral None Reported. Results Created Date Observation Date Name Description Value Unit Range Abnormal Flag Note LastModifiedBy Organization Detail LastModifiedTime 10/05/19 24 10/05/2023 sutur e setup kit* Completed? Yes Not Available [id number] [place], [address], 10/05/2023 13:03:10 10/05/19 24 10/05/2023 XR, finge r(s), 2 or more view No observ ation record ed. [facility] [address] [place], [address], 10/06/2023 09:53:19 Result Notes None recorded. Problems Name Problem SNOMED Code Status Onset Date Resolution Date Notes Provider Name and Address Organization Details Recorded Time Heart disease 39917906 Active Livia Norringto n null, [place] - [facility] 4 12:00:09 Hypertensiv e disorder 77680332 Active Livia Norringto n null, PA - [facility] 4 12:00:19 Hypercholes terolemia 99942898 Active Livia Norringto n null, PA - [facility] 4 12:00:33 Laceration of finger of left hand [id number] 9106 Active 2023 Tom Boston, [facility] [address], [address] [facility] [place] - [facility] 4 12:32:47 Problem Notes None recorded. Procedures Surgical History None recorded. Imaging Results Imaging Date Name Status LastModified by Organiz ation Details LastModified Time 10/05/2023 XR, finger(s), 2 or more view completed [facility] [address] [place], [address], 10/06/2023 09:53:19 Procedure Notes None recorded. Medical Equipment None Reported. Allergies No known drug allergies Medications Name Sig Start Date Stop Date Status Note LastModified by Organization Details LastModified Time losartan 50 mg tablet active Not Available Not Available No t Available nystatin 100,000 unit/gram topical cream APPLY TOPICALLY TO THE AFFECTED AREA TWICE DAILY 10/04 completed Not Available Not Available Not Available metoprolol succinate ER 25 mg tablet,exte nded release 24 hr active Not Available Not Available Not Available rosuvastati n 10 mg tablet Take 1 tablet every day by oral route. active Not Available Not Available No t Available Vitals Date Recorded Body height Body mass index (BMI) Body weight Oxygen saturation Oxygen saturation in Arterial blood by Pulse oximetry Heart rate Respiratory rate Body temperature Systolic blood pressure Diastolic blood pressure Provider Name and Address Organization Details Last Updated DateTime 4 154.94 cm 27.4 kg/m2 56093.8 9 g 97 % 97 % 71 /min 17 /min 98.1 [degF] 170 mm[Hg] 77 mm[Hg] Livia jay PA - [facility] 4 11:57:35 Date Recorded Body height Body mass index (BMI) Body weight Pain severity - 0-10 verbal numeric rating [Score] - Reported Respiratory rate Body temperature Oxygen saturation Oxygen saturation in Arterial blood by Pulse oximetry Heart rate Systolic blood pressure Diastolic blood pressure Provider Name and Address Organization Details Last Updated DateTime 4 154.94 cm 27.4 kg/m2 68102.8 9 g 0 18 /min 97.2 [degF] 97 % 97 % 67 /min 142 mm[Hg] 93 mm[Hg] Leesa Toro PA - [facility] 15:41:03 Social History Question Answer Notes LastModified by [employer] ion Details LastModified Time Tobacco Smoking Status Never Smoker Livia murillo PA - [facility] 10/05/2023 12:00:53 What Is Your Level Of Alcohol Consumption? None Information not available 10/05/2023 Are You Currently Employed? No Information not available 10/08/2023 Have You Had Direct Contact, Or Contact During Intimacy, With Monkeypox Rash, Scabs, Or Body Fluids From A Person With Monkeypox? No Information not available 10/05/2023 What Was The Date Of Your Most Recent Tobacco Screening? 10/05/2023 Information not available 10/05/2023 Do You Use Any Illicit Or Recreational Drugs? No Information not available 10/05/2023 Have You Recently Traveled Abroad? No Information not available 10/05/2023 Are You Currently In School? No Information not available 10/08/2023 Do You Or Have You Ever Used Any Other Forms Of Tobacco Or Nicotine? No Information not available 10/05/2023 Sex: Unknown Functional Status None recorded. Mental Status None recorded. Family History Relationship Description Onset Age of this Age Resolved Age Notes LastModified by Organization Details LastModified Time Father No current problems or disability Not available 12:00:39 Mother No current problems or disability Not available 12:00:39 Medical History No medical history recorded. Gynecological History Statement/Question Response LMP N/A Obstetrics History GPAL:G 0 P 0 0 0 0 Immunizations Vaccine Type Date Status Note Provider Nam e and Address Organization Details Recorded Time Influenza, high-dose, quadrivalent, PF 12/31/2019 completed Livia Norrington null, PA - [facility] 10/05/2023 12:37:19 Influenza, high-dose, quadrivalent, PF 01/02/2021 completed Livia Norrington null, PA - [facility] 10/05/2023 12:37:19 Influenza, high-dose, quadrivalent, PF 02/01/2022 completed Livia Norrington null, PA - [facility] 10/05/2023 12:37:19 COVID-19, mRNA, LNP-S, PF, 100 mcg/0.5mL dose or 50 mcg/0.25mL dose 05/26/2020 completed Livia Norrington null, PA - [facility] 10/05/2023 12:37:19 COVID-19, mRNA, LNP-S, PF, 100 mcg/0.5mL dose or 50 mcg/0.25mL dose 06/23/2020 completed Livia Norrington null, PA - [facility] 10/05/2023 12:37:19 COVID-19, mRNA, LNP-S, PF, 100 mcg/0.5mL dose or 50 mcg/0.25mL dose 07/24/2021 completed Livia Norrington null, PA - [facility] 10/05/2023 12:37:19 COVID-19, mRNA, LNP-S, PF, 100 mcg/0.5mL dose or 50 mcg/0.25mL dose 02/06/2021 completed Livia Norrington null, PA - [facility] 10/05/2023 12:37:19 COVID-19, mRNA, LNP-S, bivalent, PF, 50 mcg/0.5 mL or 25mcg/0.25 mL dose 01/16/2022 completed Livia Kruger null, PA - [facility] 10/05/2023 12:37:19 COVID-19, mRNA, LNP-S, PF, 50 mcg/0.5 mL 01/30/2023 completed Livia Kruger null, PA - [facility] 10/05/2023 12:37:19 Tdap 10/05/2023 completed Tom Boston DO [address] [place], [address], [place] - [facility] 10/05/2023 19:12:46 Past Encounters Encounter ID Performer Location Encounter Start Date Encounter Closed Date Diagnosis/Indication Diagnosis SNOMED-CT Code Diagnosis ICD10 Code Diagnosis [place] [id number] [place] [address] [address] 10/05/2023 11:55:31 10/05/2023 12:46:44 Laceration of finger of left hand [id number] S61.217A See pcp in 3-4 days OR HERE AT URGENT CARE. MUST BE SEEN FOR FOLLOW UP IN 3-4 DAYS I AM NOT PUTTING HER ON ABX BECAUSE OF HER HX OF CDIFF. Go to ER if anything worsens. Otc tylenol as needed for pain. Symptomati c treatment. xray now please; ORDER SHEET HANDED TO PATIENT. AREA CLEANSED WITH BETADINE SOAK IRRIGATED C NORAMAL SALINE. 7 CC OF LIDOCAINE WITH NO EPI WAS USED FOR LOCAL AREA PREPPED AND DRAPED IN STERILE FASHION 2 SUTURES PLACED. 4.0 SUTURES USED HEMOSTASIS IS OBTAINED NONSTICK BANDAGE IS APPLIED WITH TUBE GAUZE PATIENT TOLERATED PROCEDURE WELL. All of patients questions have been answered. Patient has understand ing and agreement of all of this. [id number] [place]END[place] [address] [address] 10/08/2023 15:14:28 10/08/2023 16:28:12 Laceration of finger of left hand [id number] S61.217D wound healing well. Health Concerns Section Related Observation LastModified by Organization Detai ls LastModified Time None Recorded Concern Status LastModified by Organization Details LastModified Time None Recorded Advance Directives Directive None Recorded Payers Encounter Date Sequence Insurance Name Policy Number Policy Cop[place] Covered Member ID Copeland Member ID Guarantor Name 10/05/2023 1 [place] [facility] Viola Leyda Daubney [id number] 5 Viola Daubney 10/08/2023 1 [place] [facility] Viola E Daubney [id number] 5 Viola Daubney Notes Date Note Type Note Provider Name and Address Organization Details Recorded Time 10/05/2023 text/html x3 hrs ago littl e finger left cut WITH SCISSORS WHILE ARRANGING BELLE INSIDE HER HOUSE. TETANUS SHOT MANY MANY YEARS aGO IF SHE EVER HAD ONE SHE STATES. NO LIGHTHEADEDNESS OR CHEST PAIN. PATIENT IS RIGHT HANDED. ABOUT 15 YEARS AGO, PATIENT HAD CDIDEVIN Boston DO [address] [place], [address], [place] - [facility] 10/05/2023 19:15:38 10/08/2023 text/html Follow up visit for a laceration on the tip of the left 5th finger. No increased pain, swelling, or redness. BOBO MCCLENDON MD [address] [place], [address], [place] - [facility] 10/08/2023 16:43:05 OBGyn Episode No OBEpisode recorded.
--- NOTE | 2024-05-25 08:41 | ED_ITS ---
HPI - Dizziness General Chief Complaint: Dizziness Stated Complaint: LIGHT HEADED/DIZZINESS/WEAKNESS Time Seen by Provider: 05/25/24 07:58 Source: patient and family (daughter) Mode of arrival: ambulatory Limitations: no limitations History of Present Illness ED Provider: SUSIE LANDA PA-C HPI Narrative: 88-year-old female with pmhx significant for vertigo, HDL, hypertension, renal insufficiency, rheumatoid arthritis presents to the ED today via EMS from home for evaluation of dizziness which began around 0500 this morning. Patient reports waking around 0200 to use the restroom. She was able to make it back to her bed and fall back asleep. Around 0500 she woke up to use the restroom again and upon turning over and sitting up on the side of the bed, she became acutely dizzy. Reports room spinning sensation. She felt as though she could not stand out of bed or ambulate due to the dizziness. This lasted for a few minutes before completely resolving. Admits to hx of vertigo however states that this feels somewhat different. She reports history of similar a few months ago. At that time, she was evaluated at [facility] with unremarkable work up. She denies any new medications or recent medication changes. Denies recent illness. Denies headache, vision changes, fever/chills, chest pain, palpitations, sob, wheezing, LE pain/swelling. Denies recent travel or long car rides. No recent head trauma/ falls. Related Data Home Medications ?Medication ?Instructions ?Recorded ?Confirmed aspirin 81 mg tablet,delayed 81 mg PO DAILY 01/27/24 release (Adult Aspirin Regimen) losartan 50 mg tablet 50 mg PO DAILY 01/27/24 metoprolol succinate 25 mg 25 mg PO DAILY 01/27/24 tablet,extended release 24 hr rosuvastatin 5 mg tablet 5 mg PO DAILY 01/27/24 Previous Rx's ?Medication ?Instructions ?Recorded oxymetazoline 0.05 % nasal mist 2 spray intranasal Q12H PRN nasal 01/27/24 (Afrin (oxymetazoline)) congestion 3 days #15 mL Allergies Allergy/AdvReac Type Severity Reaction Status Date / Time No Known Allergies Allergy Verified 05/25/24 07:29 Review of Systems 2 Review of Systems: Yes all other systems are reviewed and are negative PMFSH Past Medical History Attestation statement: The following information was validated with the patient. Source: old records reviewed and nursing notes reviewed Medical History HTN (hypertension) Social History Social History Patient Tobacco Use Status: Never used Tobacco Physical Exam 2 Vital Signs: Vital Signs: Last Vital Signs Temp 97.9 F 05/25/24 14:31 Pulse 63 05/25/24 14:31 Resp 20 05/25/24 14:31 BP 146/73 H 05/25/24 14:31 Pulse Ox 96 05/25/24 14:31 O2 Del Method Room Air 05/25/24 14:31 BMI result Body Mass Index 27.3 hypertensive, bradycardic General: Well appearing, in no acute distress. Skin: Warm, dry, intact. No rashes or lesions. Head: Normocephalic, atraumatic. EENT: Hearing is intact b/l. Conjunctiva clear. PERRLA. EOM intact. Moist mucous membranes.? Neck: Supple without LAD Cardiac: Chest wall symmetric. RRR. no jvd. Lungs: Normal respiratory effort without accessory muscle use. CTA bilaterally. no crackles. Abdomen: Soft, non-tender, non-distended Back: No midline spinous or paraspinal tenderness. No step off deformity. Ext: Upper and lower extremities atraumatic, without tenderness, deformity, swelling or erythema. Pulses 2+ equal and bilateral. no pitting edema. Neuro: AOx3. Normal speech. Strength 4/5 intact throughout. Sensation intact to light touch. NV intact distally. Normal finger to nose, heel to sin. Ambulating with steady gait to the commode, assisted, Psych: Appropriate mood and affect. Responds appropriately to questions. NIH Stroke Scale Internal: Initial- Upon Arrival Time: 08:10 Level of Consciousness: Alert Level of Consciousness Questions: Answers both questions correctly Level of Consciousness Commands: Performs both tasks correctly Best Gaze: Normal Visual: No visual loss Facial Palsy: Normal Motor Arm (Right): No drift Motor Arm (Left): No drift Motor Leg (Right): No drift Motor Leg (Left): No drift Limb Ataxia: Absent Sensory: Normal Best Language: No aphasia Dysarthia: Normal Extinction and Inattention: No abnormality Score: 0 Course Course Course Narrative: 1159 -- CBC without leukocytosis. no anemia, h&h stable. chemistry without acute electrolyte abnormality requiring intervention. no mikayla. troponin 12.3. given onset of symptoms, will repeat for delta to r/o NSTEMI although less likely. BNP elevated to 496, improved from [facility] visit on 03/04/24. there is no evidence of fluid overload on her physical exam. EKG showing sinus bradycardia with first-degree AV block, left axis deviation and left LVH. Rate of 50 beats per minute, QT 482, QTC 439. Patient is noted to be on a beta larissa which is likely contributing to bradycardia. I have reviewed records from [facility] regarding patient's visit on 03/04/2024. Patient presented to the ED for evaluation lightheadedness which began while she was grocery shopping. She reported that this felt different from her typical vertigo symptoms (similar to today). Vitals were notable for bradycardia to 57. Chemistry did not reveal any acute electrolyte abnormality requiring intervention. Normal liver and renal function. Her troponin was noted to be 18. They did not obtain repeat for delta. BNP 750. TSH/ T4 was WNL. Chest x-ray was unremarkable. EKG showed sinus bradycardia with first-degree AV block, left axis deviation and LVH, similar to today's EKG. there were no acute ischemic changes or st elevations. CT angio head/neck was unremarkable. She reported symptomatic improvement without any intervention and was discharged home with follow up. 1414 -- CTA head/neck without stenosis, dissection, occlusion, or hemorrhage. essentially unremarkable. repeat troponin 11.6. NSTEMI unlikely. UA without infection. CXR without pneumonia or pleural effusion. > i discussed all work up results with patient. on re-evaluation, patient declines any further episodes of dizziness while in ED as her symptoms resolved prior to arrival. she did not feel dizzy or light headed during her orthostatic vital signs. given unremarkable work up, her symptoms are most consistent with vertigo-type dizziness. she did not require any intervention in ED today. she states she feels well. her daughter at bedside does not have any concerns and states she is comfortable taking patient home today. advised to follow up with her outpatient providers. Patient has remained stable throughout ED visit today. Discussed worrisome signs and symptoms and when to return to the ED. All questions answered at this time. Patient is agreeable with disposition and stable for discharge. Medical Decision Making Medical Decision Making [facility] Narrative: 88-year-old female with pmhx significant for vertigo, HDL, hypertension, renal insufficiency, rheumatoid arthritis presents to the ED today via EMS from home for evaluation of dizziness which began around 0500 this morning. She is hypertensive to 148/60. Bradycardic to 55. Vitals are otherwise wnl. she is nontoxic appearing and in NAD. Her exam is nonfocal. Cerebellum is intact. lungs are CTA b/l without adventitious breath sounds. bradycardic with regular rhythm. no JVD or pitting edema. no calf tenderness b/l. Her symptoms are most consistent with a peripheral cause, likely vertigo.? Differential diagnoses includes: anemia, electrolyte abnormality, dehydration, arrhythmia, medication reaction, ACS, CHF, orthostasis, BPPV vs labrynthitis. No red flag features for central vertigo to include gradual onset, vertical/bidirectional or nonfatigable nystagmus, focal neurologic findings on exam (including inability to ambulate). Presentation not consistent with an acute [employer] infection, vertebral basilar artery insufficiency, cerebellar hemorrhage or infarction,?intracranial mass or bleed, temporal lobe epilepsy,?MS, trauma, complex migraine headache. Other acute, emergent causes of vertigo are unlikely at this time. Plan: labs, ekg, cxr, UA, orthostatic vitals, CTA head/neck, re-assessment Differential Diagnosis Differential Diagnoses: The differential diagnosis associated with the presentation includes as above. Admission/Observation not indicated. Lab Data [facility] Lab Attestation statement: I reviewed the patient's lab results. as above. 05/25/24 09:49 05/25/24 09:49 Labs: Lab Results 05/25/24 05/25/24 05/25/24 Range/Units 09:49 11:13 13:29 WBC 8.6 (4.8-10.8) X10*3/uL RBC 4.16 L (4.20-5.50) X10*6/uL Hgb 12.5 (12.0-16.0) g/dl Hct 37.1 (37.0-47.0) % MCV 89.2 (80.0-98.0) fL MCH 30.0 (27.0-33.0) pg MCHC 33.7 (31.0-35.0) g/dl RDW 14.3 (11.0-16.0) % Plt Count 131 L (160-400) X10*3/uL MPV 10.7 (9.4-12.3) fL Immature Gran % (Auto) 0.2 (0.0-0.4) % Neut % (Auto) 81.6 H (45-73) % Lymph % (Auto) 11.8 L (20-40) % [place] % (Auto) 5.1 (2-11) % Eos % (Auto) 0.8 (0-4) % Baso % (Auto) 0.5 (0-2) % Lymph # (Auto) 1.0 L (1.2-4.9) X10*3/uL [place] # (Auto) 0.4 (0.1-1.2) X10*3/uL Eos # (Auto) 0.1 (0.0-0.4) X10*3/uL Baso # (Auto) 0.0 (0.0-0.2) X10*3/uL Abs Immat Gran (auto) 0.02 (0.00-0.03) X10*3/uL Absolute Neuts (auto) 7.0 (2.0-8.3) x10*3/uL Absolute Nucleated RBC 0.000 (0.0-0.012) X10*3/uL Nucleated RBC % (auto) 0.0 (0.0-0.2) /100WBC Sodium 140 (135-145) mmol/L Potassium 3.9 (3.3-5.1) mmol/L Chloride 110 H (96-108) mmol/L Carbon Dioxide 23 (22-29) mmol/L Anion Gap 11 L (12-20) BUN 14 (9-16) mg/dL Creatinine 0.70 (0.5-1.4) mg/dL Estim Creat Clear Calc 47.1 Estimated GFR > 60 Random Glucose 103 (60-115) mg/dL Calcium 9.3 (8.4-10.2) mg/dL Total Bilirubin 1.0 (0.0-1.0) mg/dL AST 28 (5-31) U/L ALT 8 (0-31) U/L Alkaline Phosphatase 78 (39-117) U/L Troponin I High Sens 12.3 11.6 (<3.5-17.0) ng/L B-Natriuretic Peptide 496 H (<100) pg/mL Total Protein 6.7 (6.5-8.0) g/dL Albumin 3.7 (3.5-5.0) g/dL Urine Color Yellow Urine Appearance Clear Urine pH 6.5 (5.0-9.0) Ur Specific [place] 1.015 (1.005-1.025) Urine Protein Negative (Neg-Trace) mg/dL Urine Glucose (UA) Negative (Negative) mg/dL Urine Ketones Negative (Negative) mg/dL Urine Blood Negative (Negative) Urine Nitrite Negative (Negative) Ur Leukocyte Esterase Negative (Negative) Influenza Type A (PCR) NEGATIVE (Negative) Influenza Type B (PCR) NEGATIVE (Negative) RSV RNA Qual (PCR) NEGATIVE (Negative) SARS-CoV-2 RNA (RT-PCR) NEGATIVE (Negative) Independent Interpretation I performed an independent interpretation of an: EKG and Plain X-Ray Interpretation: EKG showing sinus bradycardia with first-degree AV block, rate of 50 beats per minute, left axis deviation, LVH, no acute ischemic changes or ST elevations Chest x-ray without focal consolidation or infiltrate Radiology Impression Discussion of test interpretation with radiology: I have reviewed the radiologist's reading. Radiologist Impression: Procedure(s): XR chest 1V Accession Number(s): [id number] cc: Sammy Land [employer]; Susie Landa~ EXAMINATION: XR CHEST 1 VIEW HISTORY: dizzy COMPARISON: There are no prior studies for comparison. FINDINGS: A single AP portable view of the chest performed at 12:43 PM is submitted. The lungs are expanded and clear. There is no pleural effusion, pneumothorax, or pulmonary vascular congestion. The heart is enlarged. There is degenerative disc disease of the spine. XR/XR chest 1V IMPRESSION: Cardiomegaly. The lungs are clear. Electronically signed by: Mason Hathaway MD 05/25/2024 01:09 PM [facility] Independent Historian Clinical information obtained from an independent historian. History obtained from or confirmed by: EMS and Other (daughter) External Record Review External record reviewed: Inpatient record and Outpatient record ([facility] 03/04/24) Chronic Conditions Patient?s care impacted by: Other (Vertigo) Social Determinants Patient?s care significantly limited by Social Determinants of Health including: Other Social Determinant of Health Critical Care Time Critical Care Time Critical Care Time: No Discharge Plan Discharge Clinical Impression: Dizziness Patient Disposition: Home, Self-Care Instructions: Dizziness (ED) Additional Instructions: You were evaluated in the ED today due to an episode of dizziness. Your urine does not demonstrate infection. Your blood work is reassuring. Your heart enzyme (troponin) was normal x2. As discussed, your EKG shows slow heart rate, likely secondary to your metoprolol. This is similar to your previous EKGs. Your chest xray does not demonstrate pneumonia or fluid. The CT scan of your head/ neck does not demonstrate vessel stenosis, dissection, clot or bleed. Incidental finding of nodules on your thyroid. Please follow up with your primary care provider for this. Your dizziness completely resolved in the ED today. Your presentation is most consistent with vertigo-like dizziness. As discussed, you may require physical therapy for treatment. Please follow up with your neurologist. Return with any new or worsening symptoms. In the case of an emergency call 911. Prescriptions: No Action metoprolol succinate 25 mg tablet extended release 24 hr 25 mg PO DAILY losartan 50 mg tablet 50 mg PO DAILY rosuvastatin 5 mg tablet 5 mg PO DAILY aspirin [Adult Aspirin Regimen] 81 mg tablet,delayed release (DR/EC) 81 mg PO DAILY Afrin (oxymetazoline) 0.05 % mist 2 spray intranasal Q12H PRN (Reason: nasal congestion) 3 Days Qty: 15 1RF Interventions: ED Discharge Assessment Last Done: 05/25/24 14:31 Discharge Date/Time: 05/25/24 14:31 Print Language: Kinyarwanda
[2024-05-25 09:54] VITALS: BP 147/66; PULSE 57
[2024-05-25 09:55] VITALS: BP 149/82; BP 154/81; PULSE 66; PULSE 67
[2024-05-25 09:55] LABS: MANUAL DIFF FLAG NO
[2024-05-25 10:04] LABS: Basophils Percent Auto 0.5 % (0-2); Eosinophils Absolute Auto 0.1 X10*3/uL (0.0-0.4); Eosinophils Percent Auto 0.8 % (0-4); Hematocrit 37.1 % (37.0-47.0); Hemoglobin 12.5 g/dl (12.0-16.0); Imm Gran Abs Auto 0.02 X10*3/uL (0.00-0.03); Imm Gran Pct Auto 0.2 % (0.0-0.4); Lymphocytes Percent Auto 11.8 % (20-40); Mean Corpuscular HGB Conc 33.7 g/dl (31.0-35.0); Mean Corpuscular Volume 89.2 fL (80.0-98.0); Mean Platelet Volume 10.7 fL (9.4-12.3); Monocytes Absolute Auto 0.4 X10*3/uL (0.1-1.2); Monocytes Percent Auto 5.1 % (2-11); Neutrophils Percent Auto 81.6 % (45-73); Platelet Count 131 X10*3/uL (160-400); Red Blood Count 4.16 X10*6/uL (4.20-5.50); Red Cell Distribution Width 14.3 % (11.0-16.0); White Blood Count 8.6 X10*3/uL (4.8-10.8)
[2024-05-25 10:13] LABS: Alanine Aminotransferase 8 U/L (0-31); Albumin Level 3.7 g/dL (3.5-5.0); Alkaline Phosphatase 78 U/L (39-117); Anion Gap 11 (12-20); Aspartate Amino Transferase 28 U/L (5-31); Blood Urea Nitrogen 14 mg/dL (9-16); Calcium 9.3 mg/dL (8.4-10.2); Carbon Dioxide 23 mmol/L (22-29); Chloride 110 mmol/L (96-108); Creatinine Clr Calc Pharmacy 47.1; Estimated Glomerular Filt Rate > 60; Glucose Random 103 mg/dL (60-115); Potassium 3.9 mmol/L (3.3-5.1); Sodium 140 mmol/L (135-145); Total Protein 6.7 g/dL (6.5-8.0)
[2024-05-25 10:18] LABS: B Type Natriuretic Peptide 496 pg/mL (<100)
[2024-05-25 10:21] LABS: Troponin-I High Sensitivity 12.3 ng/L (<3.5-17.0)
[2024-05-25 10:49] LABS: Influenza A PCR NEGATIVE (Negative); Influenza B PCR NEGATIVE (Negative); Resp Syncy Virus RNA Qual PCR NEGATIVE (Negative); SARS COV2 PCR INHOUSE NEGATIVE (Negative)
[2024-05-25 11:14] VITALS: BP 142/63; PULSE 71; RESP 20; TEMP 36.3; O2SAT 98
[2024-05-25 13:35] LABS: Appearance Urine Clear; Color Urine Yellow; Glucose Urine UA Negative (Negative); Leukocyte Esterase Urine Negative (Negative); Nitrite Urine Negative (Negative); PH 6.5 (5.0-9.0); Specific Gravity - Urine 1.015 (1.005-1.025); Urine Blood Negative (Negative); Urine Ketones Negative (Negative); Urine Protein Negative (Neg-Trace)
[2024-05-25 13:57] LABS: Troponin-I High Sensitivity 11.6 ng/L (<3.5-17.0)
[2024-05-25 14:31] VITALS: BP 146/73; PULSE 63; RESP 20; TEMP 36.6; O2SAT 96
== END 2024-05-25 14:31 | disposition home or self-care (01) ==
PROVIDERS: Physician Assistant Medical; Emergency Provider Emergency Medicine; PCP Nurse Practitioner
DX: R42 Dizziness and giddiness (principal); R00.1 Bradycardia, unspecified; R94.31 Abnormal electrocardiogram [ECG] [EKG]; R06.02 Shortness of breath; Z79.899 Other long term (current) drug therapy; Z03.818 Encounter for observation for suspected exposure to other biological agents ruled out
CPT/HCPCS: 0241U; 36415; 70496; 70498; 71045; 80053; 81003; 83880; 84484; 85025; 93005; 99284

== ENCOUNTER → 2024-05-25 07:30 | Outpatient (BNV) | payer MEDICARE, SELFPAY | PROVIDERS: Emergency Provider Emergency Medicine; PCP Nurse Practitioner; Visit Provider Internal Medicine Cardiovascular Disease | DX: I44.0 Atrioventricular block, first degree (principal); I51.7 Cardiomegaly; R00.1 Bradycardia, unspecified | CPT/HCPCS: 93010 ==

== ENCOUNTER → 2024-05-25 09:48 | Outpatient (BNV) | payer MEDICARE, SELFPAY | PROVIDERS: Emergency Provider Emergency Medicine; PCP Nurse Practitioner; Visit Provider Radiology Diagnostic Radiology | DX: I51.7 Cardiomegaly (principal); R42 Dizziness and giddiness | CPT/HCPCS: 71045 ==

== ENCOUNTER 2024-06-30 10:17 | Outpatient (REF) | payer MEDICARE, SELFPAY ==
--- NOTE | ~2024-06-30 | US_ITS ---
EXAMINATION: US THYROID HISTORY: Right thyroid nodule seen on Ct TECHNIQUE: Real-time grayscale ultrasound imaging was performed and images were reviewed. COMPARISON: Correlation is made with a CT angiogram of the neck dated 05/25/2024. FINDINGS: SIZE: The right thyroid lobe measures 4.0 x 2.4 x 2.4 cm. The left thyroid lobe measures 2.5 x 1.6 x 2.3 cm. The isthmus measures 3 mm. FLOW: Flow to the gland is normal. ECHOGENICITY: The echotexture of the gland is the right lobe is heterogeneous in appearance. The left lobe is more homogeneous in echotexture.. NODULES: Nodules are seen in both thyroid lobes as described below: Nodule #: 1 Location: Lower pole of the right thyroid lobe measuring 2.5 x 1.6 x 2.3 cm. Shape: Wider than tall (0 points) Margins: Ill-defined (0 points) Echotexture: Indeterminate (1 point) Composition: Mostly solid (2 points) Calcifications: None (0 points) Total points: 3 TIRADS: TR3: Mildly suspicious. Nodule #: 2 Location: Interpolar region of the left thyroid lobe measuring 0.8 x 0.7 x 0.6 cm. Shape: Wider than tall (0 points) Margins: Smooth (0 points) Echotexture: Indeterminate (1 point) Composition: Solid (2 points) Calcifications: None (0 points) Total points: 3 TIRADS: TR3: Mildly suspicious. US/US thyroid IMPRESSION: Dominant 2.5 x 1.6 x 2.3 cm mildly suspicious nodule at the lower pole of the right thyroid lobe. According to ACR recommendations, follow-up is recommended. ACR TI-RADS Guidelines TR1: Benign, No follow-up or biopsy required TR2: Not Suspicious, No biopsy indicated TR3: Mildly Suspicious, FNA if >= 2.5 cm, Follow if >= 1.5 cm TR4: Moderately Suspicious, FNA if >= 1.5 cm, Follow if >= 1.0 cm TR5: Highly Suspicious, FNA if >= 1.0 cm, Follow if >= 0.5 cm Electronically signed by: Mason Hathaway MD 07/01/2024 08:44 AM EDT
--- OUTSIDE RECORDS SUMMARY | 2024-06-30 11:59 | XMS_ITS | Data Portability ---
Author Organization [place] [facility], Allergy Address [address] [place] [id number] Care Team Providers Care Finisher Card Tender Name Role Phone SRINIVASAN MENG Referring Provider Assessment Encounter Date Assessment Date Assessment LastModified by Organization Details LastModified Time 02/09/2024 02/09/2024 Recommendations: Follow up with referring provider. Amplification, pending medical clearance. [email or web address] Not available 02/09/2024 11:50:59 02/09/2024 02/09/2024 Patient [...] By Organization Details Last Modified Time 02/09/2024 [id number] nosebleed information [email or web address] Not available 02/09/2024 12:25:00 Reason for Referral None Reported. Results Created Date Observation Date Name Description Value Unit Range Abnormal Flag Note LastModifiedBy Organization Detail LastModifiedTime 02/09/20 24 audio gram No observ ation record ed. Not Available 01/13 15:27:30 Result Notes None recorded. Problems Name Problem SNOMED Code Status Onset Date Resolution Date Notes Provider Name and Address Organization Details Recorded Time Bleeding from nose 987578868 Active 2023 ZOILA SCALES MD [address] [facility],[address], [place], [address], [place] - [facility] 4 11:38:18 Abnormal auditory perception 49849629 Active 2023 ZOILA SCALES MD [address] [facility], [place], [address], [place] - [facility] 11:38:27 Sensorineural hearing loss of bilateral ears 509670899 Active 2023 Davonte YIN [address] [facility],[place] [address], [place], [address], [facility] 11:51:02 Problem Notes None recorded. Procedures Surgical History Date Name Laterality Status Provider Name and Address Organization Details Recorded Time 02/09/20 24 Comp Audio with Tymps (58445 & 42376) completed Davonte YIN [address] [facility],[address], [address], [facility] - [facility] 02/09/2024 11:50:45 Cholecystectomy w/cholang completed ZOILA Cruz MD [address] [place] [address],[address], [address], [facility] 02/08/2024 10:27:22 partial resection of colon completed ZOILA Cruz MD [address] [facility],[address], [address], [facility] 02/08/2024 10:27:32 Imaging Results Imaging Date Name Status LastModified by Organiz ation Details LastModified Time 02/09/2024 audiogram completed [email or web address] Information n ot available 02/09/2024 15:27:30 Procedure [...] Updated DateTime 02/09/2024 153.67 cm 27.9 kg/m2 64508.89 g Leesa Carcamo [place] - [facility] 02/09/2024 11:26:33 Social History None recorded. Functional Status None recorded. Mental Status None recorded. Family History Nothing Reported. Medical History Condition Response Heart Problems Y Hyperlipidemia Y Hypertension Y Kidney Disease Y High Cholesterol Y Gynecological HistoryNo gynecological history recorded. Obstetrics History GPAL:G 0 P 0 0 0 0 Past Encounters Encounter ID Performer Location Encounter Start Date Encounter Closed Date Diagnosis/Indication Diagnosis SNOMED-CT Code Diagnosis ICD10 Code Diagnosis Note [id number] ZOILA LEVI MD [facility] [address] [address] 02/09/2024 11:16:40 02/09/2024 12:18:22 Bleeding from nose 955383654 R04.0 Long-term current use of antiplatelet drug 2465223554 24935 Z79.02 Sensorineu ral hearing loss of bilateral ears 495680743 H90.3 Audiologic al evaluation results: Right ear: [...] Cou ld not maintain a hermetic seal}} [id number] Davonte YIN [facility] [address] [address] 02/09/2024 11:49:39 02/09/2024 13:04:10 Sensorineural hearing loss of bilateral ears 873103572 H90.3 Audiologic al evaluation results: Right ear: [...] ID Guarantor Name 02/09/2024 1 [place] [email or web address] Viola E Daubney [id number] Viola E Daubney 02/09/2024 2 [place] [id number] Viola E Daubney [id number] Viola E Daubney 02/09/2024 1 [place] [email or web address] Viola E Daubney [id number] Viola E Daubney 02/09/2024 2 [place] [id number] Viola E Daubney [id number] Viola E Daubney Notes Date Note Type Note Provider Name and Address Organization Details Recorded Time 02/09/2024 text/html Audiological Evaluation HPIReported bypatient.Hearing loss perceived:hearing loss in both ears: no differences noted between ears Onset:gradual Use of amplification or other hearing devices:none (does not use amplification) NEO CHATMAN, [address],[place] [address], [place], [address], [facility] - [facility] 02/09/2024 11:57:15 OBGyn Episode No OBEpisode recorded.
--- OUTSIDE RECORDS SUMMARY | 2024-06-30 11:59 | XMS_ITS | Data Portability ---
Author Organization [facility] Address [address] [place] [address] Care Team Providers Care Lithostripper Name Role Phone SRINIVASAN MENG Primary Care Provider [phone] Assessment No assessment recorded. Plan of Treatment Reminders Order Date Submit Date Provider Last Modified By Organization Details Last Modified Time Details Appointments None recorded. Lab None recorded. Referral None recorded. Procedures repair of laceration procedure (PROC) 2023 024 [email or web address] Not available 11:37:31 Surgeries None recorded. Imaging XR, finger(s), 2 or more view - laceration. r/o fracture to left pinky finger 2023 024 [facility] [address] [place], [address], 4 01:49:20 Medication Orders None recorded. Patient TargetsNo targets recorded. Patient Instructions Encounter Date Encounter Id Patient Instructions Last Modified By Organization Details Last Modified Time 10/05/2023 [id number] suture setup kit* [facility] availab 10/05/2023 13:15:01 Discharge Instructions - Wound [...] days. [email or web address] Not available 10/05/2023 12:31:47 10/08/2023 [id number] Follow up with your PCP or [facility] for suture removal in 5-7 days. [email or web address] Not available 10/08/2023 16:24:41 Reason for Referral None Reported. Results Created Date Observation Date Name Description Value Unit Range Abnormal Flag Note LastModifiedBy Organization Detail LastModifiedTime 10/05/19 24 10/05/2023 sutur e setup kit* Completed? Yes Not Available [id number] [place], [address], 10/05/2023 13:03:10 10/05/19 24 10/05/2023 XR, finge r(s), 2 or more view No observ ation record ed. [facility] [address] [place], [address], 10/06/2023 09:53:19 Result Notes None recorded. Problems Name Problem SNOMED Code Status Onset Date Resolution Date Notes Provider Name and Address Organization Details Recorded Time Heart disease 71399180 Active Livia Norringto n null, [place] - [facility] 4 12:00:09 Hypertensiv e disorder 52495830 Active Livia Norringto n null, [place] - [facility] 4 12:00:19 Hypercholes terolemia 94603000 Active Livia Norringto n null, [place] - [facility] 4 12:00:33 Laceration of finger of left hand 7609390657063 9106 Active 2023 Tom Boston, [facility] [place], [address] [facility] [place] - [facility] 4 12:32:47 Problem Notes None recorded. Procedures Surgical History None recorded. Imaging Results Imaging Date Name Status LastModified by Organiz ation Details LastModified Time 10/05/2023 XR, finger(s), 2 or more view completed [facility] [address] [place], [address], 10/06/2023 09:53:19 Procedure Notes None recorded. Medical [...] Updated DateTime 4 154.94 cm 27.4 kg/m2 88905.8 9 g 97 % 97 % 71 [...] Updated DateTime 4 154.94 cm 27.4 kg/m2 13854.8 9 g 0 18 /min 97.2 [degF] 97 % 97 % 67 /min 142 mm[Hg] 93 mm[Hg] Leesa Toro PA - [facility] 15:41:03 Social History Question Answer Notes LastModified by [facility] ion Details LastModified Time Tobacco Smoking Status [...] dose or 50 mcg/0.25mL dose 02/06/2021 completed Lviia Norrington null, [place] - [facility] 10/05/2023 12:37:19 COVID-19, mRNA, LNP-S, bivalent, PF, 50 mcg/0.5 mL or 25mcg/0.25 mL dose 01/16/2022 completed Livia Kruger null, PA - [facility] 10/05/2023 12:37:19 COVID-19, mRNA, LNP-S, PF, 50 mcg/0.5 mL 01/30/2023 completed Livia Kruger null, PA - [facility] 10/05/2023 12:37:19 Tdap 10/05/2023 completed Tom Boston DO [address] [place], [address], [place] - [facility] 10/05/2023 19:12:46 Past Encounters Encounter ID Performer Location Encounter Start Date Encounter Closed Date Diagnosis/Indication Diagnosis SNOMED-CT Code Diagnosis ICD10 Code Diagnosis [place] [id number] [place] [id number] [address] 10/05/2023 11:55:31 10/05/2023 12:46:44 Laceration of finger of left hand [id number] 2512118 S61.217A See pcp in 3-4 days OR [...] ing and agreement of all of this. [id number] BOBO MCCLENDON [place] [address] [address] 10/08/2023 15:14:28 10/08/2023 16:28:12 Laceration of finger of left hand [id number] 6796599 S61.217D wound healing well. Health Concerns Section Related Observation LastModified by Organization Detai ls LastModified Time None Recorded Concern Status LastModified by Organization Details LastModified Time None Recorded Advance Directives Directive None Recorded Payers Encounter Date Sequence Insurance Name Policy Number Policy Copeland Covered Member ID Copeland Member ID Guarantor Name 10/05/2023 1 [place] [facility] Viola Leyda Daubney [id number] 5 Viola Daubney 10/08/2023 1 [place] [facility] Viola E Daubney [id number] 5 Viola Daubney Notes Date Note Type [...] CDIDEVIN Boston DO [address] [place], [address], [place] - [facility] 10/05/2023 19:15:38 10/08/2023 text/html Follow up visit for a laceration on the tip of the left 5th finger. No increased pain, swelling, or redness. BOBO MCCLENDON MD [address] [place], [address], [place] - [facility] 10/08/2023 16:43:05 OBGyn Episode No OBEpisode recorded.
--- OUTSIDE RECORDS SUMMARY | 2024-06-30 11:59 | XMS_ITS | Encounter Summary ---
Author Organization [facility] [place], Address [address] [place] [address] Phone Care Team Providers Care Quality Assurance Monitor Chassis Name Role Phone Sammy Land TOOL AND CUTTER GRINDER Primary Care Provider [phone] Encounter Details Date Type Department Care Team (Late st Contact Info) Description 12/13/2022 Documentation Only [facility] [address] [place] [address] Abhijeet Ivory DO [address] [place] [address] Social History Tobacco Use Types [...] Visit [facility] [address] [place] [address] Abhijeet Ivory DO [address] [place] [address] documented as of this encounter Visit Diagnoses Not on filedocumented in this encounter Care Teams Quality Assurance Monitor Chassis Relationship Specialty Start Date End Date Sammy Land, TOOL AND CUTTER GRINDER [address] [place] [address] PCP - General Nurse Practitioner 04/16/23 documented as of this encounter
--- OUTSIDE RECORDS SUMMARY | 2024-06-30 11:59 | XMS_ITS | Clinical Summary ---
Author Organization [facility] Address [address] [place] [address] Phone Care Team Providers Care Field Auto Appraiser Name Role Phone Naya Winchester MD Primary Care Provider [phone] Allergies No known active allergies Medications losartan [...] Assessment & Plan (03/31/2024 11:22 AM EST): Family History Medical History Relation Name Comments [...] Care Team (Late st Contact Info) Description 09/16/2024 1:10 PM EDT Office Visit [facility] [address] [place] [address] Wendy Villarreal, KAIDEN [address] [place] [address] Health Maintenance Due Date Last Done Comments Zoster Vaccines (1 of 2) 1986 RSV Immunization Patients 60+ Years Old (1 - 1-dose 75+ series) 09/11/2011 Pneumococcal Vaccine: 50+ Years (2 of 2 - PPSV23) 05/15/2017 05/15/2016, 12/29/2014 Cholesterol Screening (Lipid Panel) [...] patient's age to complete this topic Meningococcal B Vacine Aged Out No lo nger eligible based on patient's age to complete this topic RSV Immunization Patients Under 20 months Aged Out No longer eligible based on patient's age to complete this topic Varicella Vaccines Aged Out No longer eligible based on patient's age to complete this topic Insurance MEDICARE [facility] Care Teams Field Auto Appraiser Relationship Specialty Start Date End Date Naya Winchester MD [address] [place] [address] PCP - General Internal Medicine 03/31/24
--- OUTSIDE RECORDS SUMMARY | 2024-06-30 11:59 | XMS_ITS | Encounter Summary ---
Author Organization [facility] [place], Address [address] [place] [address] Phone Care Team Providers Care Corrections Corporal Name Role Phone Sammy Land GUM ROLLING MACHINE TENDER Primary Care Provider [phone] Encounter Details Date Type Department Care Team (Late st Contact Info) Description 11/23/2022 Documentation Only [facility] [address] [place] [address] Abhijeet Ivory DO [address] [place] [address] Social History Tobacco Use Types [...] Visit [facility] [address] [place] [address] Abhijeet Ivory DO [address] [place] [address] documented as of this encounter Visit Diagnoses Not on filedocumented in this encounter Care Teams Corrections Corporal Relationship Specialty Start Date End Date Sammy Land, GUM ROLLING MACHINE TENDER [address] [place] [address] PCP - General Nurse Practitioner 04/16/23 documented as of this encounter
--- OUTSIDE RECORDS SUMMARY | 2024-06-30 12:00 | XMS_ITS | Encounter Summary ---
Author Organization [facility] [place], Address [address] [place] [address] Phone Care Team Providers Care Care Services Manager Name Role Phone Sammy Land PHILOSOPHY FACULTY Primary Care Provider [phone] Encounter Details Date Type Department Care Team (Late st Contact Info) Description 11/23/2022 Documentation Only [facility] [address] [address] Abhijeet Ivory DO [address] [place] [address] Social History Tobacco Use Types [...] Visit [facility] [address] [place] [address] Abhijeet Ivory DO [address] [place] [address] documented as of this encounter Visit Diagnoses Not on filedocumented in this encounter Care Teams Care Services Manager Relationship Specialty Start Date End Date Sammy Land, PHILOSOPHY FACULTY [address] [place] [address] PCP - General Nurse Practitioner 04/16/23 documented as of this encounter
--- OUTSIDE RECORDS SUMMARY | 2024-06-30 12:00 | XMS_ITS | Encounter Summary ---
Author Organization [facility] [place], Address [address] [place] [address] Phone Care Team Providers Care Steno Typist Name Role Phone Sammy Land SAW SHARPENER Primary Care Provider [phone] Encounter Details Date Type Department Care Team (Late st Contact Info) Description 04/20/2024 Documentation Only [facility] [address] [place] [address] Abhijeet Ivory DO [address] [facility] [place] [address] Social History Tobacco Use Types [...] Visit [facility] [address] [place] [address] Abhijeet Ivory DO [address] [facility] [place] [address] documented as of this encounter Visit Diagnoses Not on filedocumented in this encounter Care Teams Steno Typist Relationship Specialty Start Date End Date Sammy Land, SAW SHARPENER [address] [place] [address] PCP - General Nurse Practitioner 04/16/23 documented as of this encounter
--- OUTSIDE RECORDS SUMMARY | 2024-06-30 12:00 | XMS_ITS | Clinical Summary ---
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 [address] Health Maintenance Due Date Last Done Comments Pneumococcal Vaccine: 65+ Years (2 of 2 - PPSV23 or PCV20) 07/10/2016 05/15/2016, 12/29/2014 Influenza Vaccine (#1) 2023 6, 12/29/2014 Hepatitis B Vaccine Aged Out No longe r eligible based on patient's age to complete this topic Insurance MEDICARE [facility] Care Teams Pig Iron Loader Relationship Specialty Start Date End Date Sammy Land NP [address] [place] [address] PCP - General Nurse Practitioner 04/16/23
== END 2024-06-30 10:18 | disposition home or self-care (01) ==
LOC: HO.US 10:17
PROVIDERS: PCP Nurse Practitioner; Visit Provider Nurse Practitioner
DX: E04.1 Nontoxic single thyroid nodule (principal)
CPT/HCPCS: 76536

== ENCOUNTER → 2024-06-30 10:42 | Outpatient (BNV) | payer MEDICARE, SELFPAY | PROVIDERS: PCP Nurse Practitioner; Visit Provider Radiology Diagnostic Radiology | DX: E04.1 Nontoxic single thyroid nodule (principal) | CPT/HCPCS: 76536 ==

== ENCOUNTER 2024-08-10 12:37 | Outpatient (REF) | payer MEDICARE, SELFPAY ==
--- NOTE | ~2024-08-10 | US_ITS ---
EXAMINATION: Ultrasound right thyroid nodule biopsy CLINICAL INDICATION: Moderate-sized lower pole right thyroid nodule measuring 2.5 cm on the last ultrasound. COMPARISON: Ultrasound thyroid 06/30/2024. TECHNIQUE: Following explaining ultrasound-guided right thyroid nodule biopsy procedure, benefits and risk, a written consent was obtained. Patient was placed supine with head extended and preliminary ultrasound imaging was obtained in the right neck. An optimal site was selected along the right anterior neck and a marker was placed on the skin. The skin site was cleaned and draped in usual sterile manner. 1% lidocaine was injected puncture site. Under sterile ultrasound guidance a singlewall needle was inserted from the skin into the right lower pole nodule and 4 pass biopsy was performed. Fluid collection was sent in CytoLyt for further evaluation. There were no immediate complications. Patient tolerated procedure extremely well. Simple Band-Aid applied postprocedure. FINDINGS: Again visualized is a heterogeneous lower pole right thyroid nodule measuring 2.5 x 2.2 x 2.4 cm and volume 6.7 mL. Ultrasound-guided right thyroid nodule biopsy was performed with 4 passes. US/US biopsy thyroid IMPRESSION: Successful ultrasound-guided right thyroid nodule biopsy performed. Electronically signed by: Mack Nieves MD 08/12/2024 11:33 AM EDT
[2024-08-10] MEDS: Lidocaine HCl 1 % MPF 5 ML VIAL SUBCUT (14:01)
--- OUTSIDE RECORDS SUMMARY | 2024-08-10 14:29 | XMS_ITS | Encounter Summary ---
Author Organization [facility] [place], Address [address] [place] [address] Phone Care Team Providers Care Hide Inspector Name Role Phone Sammy Land PROFESSIONAL WRESTLER Primary Care Provider [phone] Encounter Details Date Type Department Care Team (Late st Contact Info) Description 11/23/2022 Documentation Only [facility] [address] [place] [address] Abhijeet Ivory DO [address] [facility] [place] [address] Social History Tobacco Use Types [...] Visit [facility] [address] [place] [address] Abhijeet Ivory DO [address] [place] [address] documented as of this encounter Visit Diagnoses Not on filedocumented in this encounter Care Teams Hide Inspector Relationship Specialty Start Date End Date Sammy Land, PROFESSIONAL WRESTLER [address] [place] [address] PCP - General Nurse Practitioner 04/16/23 documented as of this encounter
--- OUTSIDE RECORDS SUMMARY | 2024-08-10 14:29 | XMS_ITS | Encounter Summary ---
Author Organization [facility] [place], Address [address] [place] [address] Phone Care Team Providers Care Rubber Compounder Supervisor Name Role Phone Sammy Land LOFT WORKER APPRENTICE Primary Care Provider [phone] Encounter Details Date Type Department Care Team (Late st Contact Info) Description 04/20/2024 Documentation Only [facility] [address] [place] [address] Abhijeet Ivory DO [address] [facility] [address] [place] [address] Social History Tobacco Use Types [...] Visit [facility] [address] [place] [address] Abhijeet Ivory DO [address] [facility] [address] [place] [address] documented as of this encounter Visit Diagnoses Not on filedocumented in this encounter Care Teams Rubber Compounder Supervisor Relationship Specialty Start Date End Date Sammy Land, LOFT WORKER APPRENTICE [address] [place] [address] PCP - General Nurse Practitioner 04/16/23 documented as of this encounter
--- OUTSIDE RECORDS SUMMARY | 2024-08-10 14:29 | XMS_ITS | Data Portability ---
Author Organization [place] [facility] Address [address] [place] [address] Care Team Providers Care Flight Test Mechanic Name Role Phone SRINIVASAN MENG Referring Provider [phone] Assessment Encounter Date Assessment Date Assessment LastModified by Organization Details LastModified Time 02/09/2024 02/09/2024 Recommendations: Follow up with referring provider. Amplification, pending medical clearance. [email or web address] Not available 02/09/2024 11:50:59 02/09/2024 02/09/2024 Patient [...] By Organization Details Last Modified Time 02/09/2024 [id number] nosebleed information [email or web address] Not available 02/09/2024 12:25:00 Reason for Referral None Reported. Results Created Date Observation Date Name Description Value Unit Range Abnormal Flag Note LastModifiedBy Organization Detail LastModifiedTime 02/09/20 24 audio gram No observ ation record ed. [email or web address] Not Available 01/13 15:27:30 Result Notes None recorded. Problems Name Problem SNOMED Code Status Onset Date Resolution Date Notes Provider Name and Address Organization Details Recorded Time Bleeding from nose 666026275 Active 2023 ZOILA SCALES MD [address] [facility], [place], [address], [place] - [facility] 4 11:38:18 Abnormal auditory perception 88900618 Active 2023 ZOILA SCALES MD [address] [facility], [place], [address], [place] - [facility] 11:38:27 Sensorineural hearing loss of bilateral ears 783510611 Active 2023 Davonte YIN [address] [facility],[place] [address], [place], [address], [facility] 11:51:02 Problem Notes None recorded. Procedures Surgical History Date Name Laterality Status Provider Name and Address Organization Details Recorded Time 02/09/20 24 Comp Audio with Tymps (95366 & 72975) completed Davonte YIN [address] [facility],[address], [address], [facility] - [facility] 02/09/2024 11:50:45 Cholecystectomy w/cholang completed ZOILA Cruz MD [address] [place] [address],[address], [address], [facility] 02/08/2024 10:27:22 partial resection of colon completed ZOILA Cruz MD [address] [facility],[address], [address], [facility] 02/08/2024 10:27:32 Imaging Results Imaging Date Name Status LastModified by Organiz ation Details LastModified Time 02/09/2024 audiogram completed [email or web address] Information n ot available 02/09/2024 15:27:30 Procedure [...] Updated DateTime 02/09/2024 153.67 cm 27.9 kg/m2 01125.89 g Leesa Carcamo [place] - [facility] 02/09/2024 11:26:33 Social History None recorded. Functional Status None recorded. Mental Status None recorded. Family History Nothing Reported. Medical History Condition Response Heart Problems Y Hyperlipidemia Y Hypertension Y High Cholesterol Y Kidney Disease Y Gynecological HistoryNo gynecological history recorded. Obstetrics History GPAL:G 0 P 0 0 0 0 Past Encounters Encounter ID Performer Location Encounter Start Date Encounter Closed Date Diagnosis/Indication Diagnosis SNOMED-CT Code Diagnosis ICD10 Code Diagnosis Note [id number] ZOILA LEVI MD [facility] [address] [address] 02/09/2024 11:16:40 02/09/2024 12:18:22 Bleeding from nose 999905722 R04.0 Long-term current use of antiplatelet drug 4979372648 71374 Z79.02 Sensorineu ral hearing loss of bilateral ears 017464882 H90.3 Audiologic al evaluation results: Right ear: [...] Cou ld not maintain a hermetic seal}} [id number] Davonte YIN [facility] [address] [address] 02/09/2024 11:49:39 02/09/2024 13:04:10 Sensorineural hearing loss of bilateral ears 211244147 H90.3 Audiologic al evaluation results: Right ear: [...] ID Guarantor Name 02/09/2024 1 [place] [employer] Viola E Daubney [id number] Viola E Daubney 02/09/2024 2 [place] [id number] Viola E Daubney [id number] Viola E Daubney 02/09/2024 1 [place] [employer] Viola E Daubney [id number] Viola E Daubney 02/09/2024 2 [place] [id number] Viola E Daubney [id number] Viola E Daubney Notes Date Note Type Note Provider Name and Address Organization Details Recorded Time 02/09/2024 text/html Audiological Evaluation HPIReported bypatient.Hearing loss perceived:hearing loss in both ears: no differences noted between ears Onset:gradual Use of amplification or other hearing devices:none (does not use amplification) NEO CHATMAN, [address],[place] [address], [place], [address], [facility] - [facility] 02/09/2024 11:57:15 OBGyn Episode No OBEpisode recorded.
--- OUTSIDE RECORDS SUMMARY | 2024-08-10 14:29 | XMS_ITS | Encounter Summary ---
Author Organization [facility], Address [address] [place] [address] Phone Care Team Providers Care Straight Knife Machine Cutter Name Role Phone Sammy Land FILLER SIFTER HELPER Primary Care Provider [phone] Encounter Details Date Type Department Care Team (Late st Contact Info) Description 11/23/2022 Documentation Only [facility] [address] [place] [address] Abhijeet Ivory DO [address] [facility] [place] [address] Social History Tobacco Use Types [...] Visit [facility] [address] [facility] [place] [address] Abhijeet Ivory DO [address] [facility] [place] [address] documented as of this encounter Visit Diagnoses Not on filedocumented in this encounter Care Teams Straight Knife Machine Cutter Relationship Specialty Start Date End Date Sammy Land, FILLER SIFTER HELPER [address] [place] [address] PCP - General Nurse Practitioner 04/16/23 documented as of this encounter
--- OUTSIDE RECORDS SUMMARY | 2024-08-10 14:29 | XMS_ITS | Clinical Summary ---
Author Organization [address] [facility] Address [address] [place] [address] Phone Care Team Providers Care Project Analyst Name Role Phone Naya Winchester MD Primary Care Provider [phone] Allergies No known active allergies Medications losartan [...] 1 tablet (25 mg total) by mouth 1 (one) time each day. Do not crush or chew. Active Active Problems Problem Noted Date Diagnosed Date HLD (hyperlipidemia) 01/25/2021 Assessment & Plan (03/31/2024 11:57 AM EST): HTN (hypertension) 01/25/2021 Hypertrophic cardiomyopathy (CMS/HCC V24, CMS/HC C V28) 01/25/2021 Assessment & Plan (03/31/2024 11:22 AM EST): Encounters Date Type Department Care Team Description 07/05/2024 Telephone [facility] [address] [facility] [address] [place] [id number] Guille Tan MD medication adjustment from Last 3 Months Family History Medical [...] Care Team (Late st Contact Info) Description 09/23/2024 3:10 PM EDT Office Visit [facility] [address] [facility] [address] [place] [phone] Wendy Villarreal NP 300 [facility] [address] [place] [phone] Health Maintenance Due Date Last Done Comments Zoster Vaccines (1 of 2) 1986 RSV Immunization Adult Patients (1 - 1-dose 75+ series) 09/11/2011 Pneumococcal Vaccine: 50+ Years (2 of 2 - PPSV23) 05/15/2017 05/15/2016, 12/29/2014 Cholesterol Screening (Lipid Panel) 03/23/2022 Depression Screening 03/23/2022 Falls Risk Assessment 03/23/2022 Osteoporosis Screening (Bone Density Screening) 03/23/2022 Social Influencers of Health Screening 03/23/2022 Hypertension/CHF/CAD Annual BMP Blood Test 03/29/2022 Medicare Annual Wellness Visit 09/04/2023 09/03/2022 COVID-19 Vaccine ( season) 2024 01/01/2024, 01/30/2023, 01/16/2022, Additional history exists DTaP,Tdap,and Td Vaccines (2 - Td or Tdap) 10/04/2033 10/05/2023 Influenza Vaccine Completed 01/20/2024, , 02/01/2022, Additional [...] age to complete this topic Meningococcal B Vaccine Aged Out No l onger eligible based on patient's age to complete this topic RSV Immunization Patients Under 20 months Aged Out No longer eligible based on patient's age to complete this topic Varicella Vaccines Aged Out No longer eligible based on patient's age to complete this topic Insurance MEDICARE [facility] Care Teams Project Analyst Relationship Specialty Start Date End Date Naya Winchester MD [address] [place] [address] PCP - General Internal Medicine 03/31/24
--- OUTSIDE RECORDS SUMMARY | 2024-08-10 14:29 | XMS_ITS | Encounter Summary ---
Author Organization [facility], Address [address] [place] [address] Phone Care Team Providers Care Fire Extinguisher Tester Name Role Phone Sammy Land AIRCRAFT PAINTER Primary Care Provider [phone] Encounter Details Date Type Department Care Team (Late st Contact Info) Description 12/13/2022 Documentation Only [facility] [address] [place] [address] Abhijeet Ivory DO [address] [facility] [place] [address] Social History Tobacco Use Types [...] Visit [facility] [address] [place] [address] Abhijeet Ivory DO [address] [facility] [place] [address] documented as of this encounter Visit Diagnoses Not on filedocumented in this encounter Care Teams Fire Extinguisher Tester Relationship Specialty Start Date End Date Sammy Land, AIRCRAFT PAINTER [address] [place] [address] PCP - General Nurse Practitioner 04/16/23 documented as of this encounter
--- OUTSIDE RECORDS SUMMARY | 2024-08-10 14:29 | XMS_ITS | Data Portability ---
Author Organization [facility] Address [address] [place] [address] Care Team Providers Care Devulcanizer Charger Name Role Phone SRINIVASAN MENG Primary Care Provider [phone] Assessment No assessment recorded. Plan of Treatment Reminders Order Date Submit Date Provider Last Modified By Organization Details Last Modified Time Details Appointments None recorded. Lab None recorded. Referral None recorded. Procedures repair of laceration procedure (PROC) 2023 024 [email or web address] Not available 11:37:31 Surgeries None recorded. Imaging XR, finger(s), 2 or more view - laceration. r/o fracture to left pinky finger 2023 024 [facility] [address] [place], [address], 4 01:49:20 Medication Orders None recorded. Patient TargetsNo targets recorded. Patient Instructions Encounter Date Encounter Id Patient Instructions Last Modified By Organization Details Last Modified Time 10/05/2023 [id number] suture setup kit* [facility] 10/05/2023 13:15:01 Discharge Instructions - [...] days. [email or web address] Not available 10/05/2023 12:31:47 10/08/2023 [id number] Follow up with your PCP or [facility] for suture removal in 5-7 days. [email or web address] Not available 10/08/2023 16:24:41 Reason for Referral None Reported. Results Created Date Observation Date Name Description Value Unit Range Abnormal Flag Note LastModifiedBy Organization Detail LastModifiedTime 10/05/19 24 10/05/2023 sutur e setup kit* Completed? Yes Not Available [id number] [place], [address], 10/05/2023 13:03:10 10/05/19 24 10/05/2023 XR, finge r(s), 2 or more view No observ ation record ed. [facility] [address] [place], [address], 10/06/2023 09:53:19 Result Notes None recorded. Problems Name Problem SNOMED Code Status Onset Date Resolution Date Notes Provider Name and Address Organization Details Recorded Time Heart disease 20295005 Active Livia Norringto n null, PA - [facility] 4 12:00:09 Hypertensiv e disorder 29516873 Active Livia Norringto n null, PA - [facility] 4 12:00:19 Hypercholes terolemia 44426938 Active Livia Norringto n null, PA - [facility] 4 12:00:33 Laceration of finger of left hand 4158690930987 9106 Active 2023 Tom Boston, [facility], [address] [facility] PA - [facility] 4 12:32:47 Problem Notes None recorded. Procedures Surgical History None recorded. Imaging Results Imaging Date Name Status LastModified by Organiz ation Details LastModified Time 10/05/2023 XR, finger(s), 2 or more view completed [facility] [address] [place], [address], 10/06/2023 09:53:19 Procedure Notes None recorded. Medical [...] Updated DateTime 4 154.94 cm 27.4 kg/m2 53482.8 9 g 97 % 97 % 71 [...] Updated DateTime 4 154.94 cm 27.4 kg/m2 52545.8 9 g 0 18 /min 97.2 [degF] 97 % 97 % 67 /min 142 mm[Hg] 93 mm[Hg] Leesa Toro PA - [facility] 15:41:03 Social History Question Answer Notes LastModified by Mertado ion Details LastModified Time Tobacco Smoking Status [...] Boston DO [address] [place], [address], [place] - [facility] 10/05/2023 19:12:46 Past Encounters Encounter ID Performer Location Encounter Start Date Encounter Closed Date Diagnosis/Indication Diagnosis SNOMED-CT Code Diagnosis ICD10 Code Diagnosis [place] [id number] [place] [address] [address] 10/05/2023 11:55:31 10/05/2023 12:46:44 Laceration of finger of left hand [id number] S61.217A See pcp in 3-4 days OR [...] ing and agreement of all of this. [id number] BOBO MCCLENDON MD [address] [address] 10/08/2023 15:14:28 10/08/2023 16:28:12 Laceration of finger of left hand [id number] 1339045 S61.217D wound healing well. Health Concerns Section Related Observation LastModified by Organization Detai ls LastModified Time None Recorded Concern Status LastModified by Organization Details LastModified Time None Recorded Advance Directives Directive None Recorded Payers Encounter Date Sequence Insurance Name Policy Number Policy Copeland Covered Member ID Copeland Member ID Guarantor Name 10/05/2023 1 [place] [facility] Viola Leyda Daubney [id number] 5 Viola Daubney 10/08/2023 1 [place] [facility] Viola E Daubney [id number] 5 Viola Daubney Notes Date Note Type [...] CDIDEVIN Boston DO [address] [place], [address], [place] - [facility] 10/05/2023 19:15:38 10/08/2023 text/html Follow up visit for a laceration on the tip of the left 5th finger. No increased pain, swelling, or redness. BOBO MCCLENDON MD [address] [place], [address], [place] - [facility] 10/08/2023 16:43:05 OBGyn Episode No OBEpisode recorded.
--- OUTSIDE RECORDS SUMMARY | 2024-08-10 14:29 | XMS_ITS | Clinical Summary ---
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 [phone] Health Maintenance Due Date Last Done Comments Pneumococcal Vaccine: 50+ Years (2 of 2 - PPSV23) 07/10/2016 05/15/2016, 12/29/2014 Influenza Vaccine (Season Ended) 2024 01/08/2016, 12/29/2014 Pneumococcal Vaccine: Peds (0 to 5 Years) and At-Risk Patients (6 to 49 Years) Discontinued 05/15/2016, 12/29/2014 Hepatitis B Vaccine Aged Out No longe r eligible based on patient's age to complete this topic Insurance Medicare [facility] Care Teams Compliance Manager Relationship Specialty Start Date End Date Sammy Land NP [address] [place] [address] PCP - General Nurse Practitioner 04/16/23
== END 2024-08-10 12:38 | disposition home or self-care (01) ==
LOC: HO.US 12:37
PROVIDERS: PCP Nurse Practitioner; Visit Provider Nurse Practitioner
DX: E04.1 Nontoxic single thyroid nodule (principal)
CPT/HCPCS: 10005; 88173; 88305; J2003

== ENCOUNTER → 2024-08-10 12:41 | Outpatient (BNV) | payer MEDICARE, SELFPAY | PROVIDERS: PCP Nurse Practitioner; Visit Provider Radiology Diagnostic Radiology | DX: E04.1 Nontoxic single thyroid nodule (principal) | CPT/HCPCS: 10005 ==